=== PATIENT | female | born 1940 | race Caucasian/White ===

== ENCOUNTER 2024-05-18 11:15 | Inpatient (IN) | payer MEDICARE, OTHER, SELFPAY ==
--- NOTE | ~2024-05-18 | CT_ITS ---
EXAMINATION: CT ABDOMEN AND PELVIS WITHOUT CONTRAST CLINICAL INFORMATION: Fever. COMPARISON: None available. TECHNIQUE: Multidetector volumetric imaging was performed from the superior aspect of the liver through the pubic symphysis. Sagittal and coronal reformatted images were obtained on the technologist's workstation. This CT examination was performed using dose optimization techniques as appropriate, variously including the following: *Automated exposure control *Adjustment of mA and/or kV according to patient size (this includes techniques or standardized protocols for targeted exams where dose is matched to indication/reason for exam; i.e. extremities or head) *Use of iterative reconstruction technique DLP: 824 mGy-cm FINDINGS: LUNG BASES: There is apparent pericardial effusion most prominent on the left measuring up to 3.6 cm on the left. There is minimal atelectatic change at the left lung base. LIVER, GALLBLADDER, AND BILIARY TREE: The liver is normal in size, shape, and attenuation. No focal hepatic lesion or biliary ductal dilatation is present. There has been a prior cholecystectomy. PANCREAS: There are multiple cysts associated with the pancreas measuring up to 5.3 cm at the neck of the pancreas and 1.8 cm in the tail of the pancreas. SPLEEN: Unremarkable. ADRENAL GLANDS: Unremarkable. KIDNEYS AND URETERS: The kidneys are normal in size, shape, and attenuation. There are multiple bilateral renal cysts measuring up to 2.8 cm lower pole left kidney. BLADDER: Urinary bladder is decompressed. There is significant urinary bladder wall thickening with pericystic infiltration. GASTROINTESTINAL TRACT: There is diverticulosis of the descending and the sigmoid colon without diverticulitis. ABDOMINAL WALL: No significant hernia is appreciated. LYMPH NODES: Normal. VASCULAR: Unremarkable. PELVIC VISCERA: There is a multicystic lobular structure within the right adnexa measuring 5.5 cm. Multiple uterine fibroids are noted some of which are calcified.. OSSEOUS STRUCTURES: There is diffuse thoracolumbar degenerative change. CT/CT abdomen pelvis wo IV con IMPRESSION: 1. Pericardial effusion. 2. Multiple cysts associated with the pancreas measuring up to 5.3 cm. 3. Multicystic structure within the right adnexa measuring 5.5 cm. This is potentially neoplastic in a patient of this age. 4. Diverticulosis without diverticulitis of the descending and sigmoid colon. 5. Multiple uterine fibroids some of which are calcified. 6. Diffuse left urinary bladder wall thickening with pericystic infiltration consistent with cystitis. Correlation with urinalysis needed. Fleischner guidelines were followed.
--- NOTE | ~2024-05-18 | XR_ITS ---
EXAMINATION: XR CHEST CLINICAL INFORMATION: Weakness COMPARISON: None available. TECHNIQUE: Frontal view of the chest was obtained. FINDINGS: The cardiac silhouette is enlarged. Hilar and mediastinal contours are unremarkable. cosmetics presser projects over the left lower chest, question representing loop recorder. Lungs are clear. No pleural effusion or pneumothorax. There are degenerative changes of the spine and mild curvature of the midthoracic spine to the right. XR/XR chest 1V IMPRESSION: Enlarged cardiac silhouette.
--- NOTE | ~2024-05-18 | CT_ITS ---
EXAMINATION: CT HEAD WITHOUT CONTRAST CLINICAL INFORMATION: 83-year-old female with altered mental status COMPARISON: 05/22/2024 TECHNIQUE: Contiguous axial imaging was performed from the skull base to vertex without intravenous administration of contrast. This CT examination was performed using dose optimization techniques as appropriate, variously including the following: *Automated exposure control *Adjustment of mA and/or kV according to patient size (this includes techniques or standardized protocols for targeted exams where dose is matched to indication/reason for exam; i.e. extremities or head) *Use of iterative reconstruction technique DLP: 7 7 the mGy-cm FINDINGS: Examination limited due to motion. There is no evidence of acute intracranial hemorrhage masses, mass effect, but there is questionable high attenuation lesion adjacent to the medial aspect of right frontal cortex seen on image 25 series 2 and measured 0.2 cm. The ventricles, sulci, cisterns are prominent due to global volume loss and there are patchy periventricular white matter changes as a sequela of microangiopathy Paranasal sinuses are well aerated and there is no fractures. CT/CT head/brain wo IV con IMPRESSION: 1. Limited study due to motion. 2. Questionable high attenuation small lesion adjacent to the medial aspect of right frontal cortex. MRI is recommended for further evaluation. 3. Sequela of microangiopathy and global volume loss.
--- NOTE | ~2024-05-18 | MR_ITS ---
EXAMINATION: MR BRAIN WITHOUT AND WITH CONTRAST CLINICAL INFORMATION: Seizures. Question viral encephalitis. Question metastatic disease. COMPARISON: CT angiogram 05/19/2024. TECHNIQUE: Multiplanar MR imaging of the brain was performed without and with contrast. A total of 7.5 mL Gadavist was utilized for this examination. FINDINGS: Patient motion degrades image quality therefore the diagnostic accuracy of this examination is limited. On a dedicated coronal imaging, the hippocampi appear relatively small and there is corresponding enlargement of the temporal horns. Equivocal asymmetric T2 signal hyperintensity within the right hippocampus. Postcontrast images reveal no abnormal intracranial mass or enhancement. There is no intracranial mass effect or midline shift. No abnormal extra-axial collection. There is loss of parenchymal volume within the vacuo enlargement of the ventricular volumes. There is relative effacement of the sulcal spaces near the vertex and borderline narrowing of the callosal angle which may represent a manifestation of normal pressure hydrocephalus. There is a small focus of cortical encephalomalacia involving the left middle frontal gyrus near the vertex. There are numerous foci of T2 FLAIR signal hyperintensity within the periventricular white matter and hank that most likely represent a chronic manifestation of small vessel ischemia. There is also a nonspecific T2 FLAIR signal hyperintensity within the cerebellar hemispheres. No acute territorial infarct. No pathological magnetic susceptibility artifact. Intracranial vascular flow voids are grossly maintained. There is a small left mastoid tip effusion. Mild paranasal sinus disease primarily affecting the ethmoid air cells. Globes and orbits are symmetric. MR/MR head/brain wo/w con IMPRESSION: Patient motion degrades image quality therefore the diagnostic accuracy of this examination is limited. The hippocampi appear relatively small and there is equivocal hyperintensity within the right hippocampus which could represent a manifestation of underlying hippocampal sclerosis. Although not well assessed on this examination, a few of the vascular flow voids are absent within the cortical veins over the left convexity near the vertex. Correlation with the recent CT angiogram reveals absence of contrast filling within a few cortical veins. These findings may therefore represent vasculitis or perhaps cortical venous thrombosis. There is a small focal cortical lesion involving the left middle frontal gyrus near the vertex that may represent a small venous infarct. Alternately this finding may represent cystic encephalomalacia from an old vascular insult. Continued follow-up is however is recommended to ensure stability or resolution. There are are numerous chronic small vessel ischemic changes primarily involving the periventricular white matter and hank. There is relatively subtle ill-defined T2 signal hyperintensity within the cerebellum, the etiology of which is uncertain. Encephalitis is not excluded. Continued follow-up is recommended to assess the stability of this finding.
--- NOTE | ~2024-05-18 | CT_ITS ---
EXAMINATION: CT angio head neck stroke CLINICAL INFORMATION: Acute mental status change, eyes deviated to left COMPARISON: CT head 05/19/2024 TECHNIQUE: Test bolus sequences followed by intravenous administration 100 mL of Omnipaque 350. Helical imaging was performed in the axial plane from the mediastinum to the skull vertex. Delayed postcontrast imaging of the head was also performed. The data was processed at the automation technologist's workstation for generation of MIP sequences. Three-dimensional volume rendered reformatted images were also generated at an offline 3-D workstation. Arterial stenoses are measured in accordance with NASCET criteria or similar method if applicable. This CT examination was performed using dose optimization techniques as appropriate, variously including the following: * Automated exposure control * Adjustment of mA and/or kV according to patient size (this includes techniques or standardized protocols for targeted exams where dose is matched to indication/reason for exam; i.e. extremities or head) Use of iterative reconstruction technique DLP: 1531 mGy-cm. FINDINGS: CT head: There is no evidence of acute intracranial hemorrhage or territorial infarction. There is no loss of patel to white matter differentiation. No abnormal mass effect or midline shift is seen. No extra-axial fluid collections are identified. There is no abnormal enhancement. No hydrocephalus. Proportional prominence of the ventricles and sulcal spaces is consistent with moderate volume loss. Patchy periventricular and deep white matter hypoattenuation is consistent with moderate small vessel ischemic changes. The cerebellar tonsils are well positioned. No acute osseous or soft tissue abnormality. The mastoid air cells and visualized portions of the paranasal sinuses are well aerated. CTA neck: 2 vessel aortic arch with common origin of the brachiocephalic and left common carotid arteries. The origins of the great vessels are normal. The common carotid arteries are widely patent. The carotid bifurcations are normal. The cervical internal carotid arteries are normal. The vertebral arteries opacify normally and are of normal caliber. Nonvascular: Numerous peripherally enhancing centrally hypodense collections throughout the right greater than left thyroid measuring up to 2.2 cm. No cervical lymphadenopathy. Mild dependent subsegmental atelectasis bilaterally in the visualized lung apices. Mild multilevel cervical spondylosis. CTA head: Cavernous ICAs: Scattered atherosclerotic calcifications without significant stenosis on either side. A1 segments, anterior communicating artery, and A2 segments: Patent without significant stenosis. M1 segments and major MCA branches: Bilateral M1 segments are patent without significant stenosis. P1, P2 and proximal P3 segments of the audit manager: Patent without significant stenosis. Intracranial vertebral arteries, cerebellar arteries and basilar artery: Patent without significant stenosis. CT/CT angio head neck stroke IMPRESSION: HEAD CT: 1. No acute intracranial hemorrhage or edematous infarction. 2. Chronic changes including moderate ischemic microangiopathy and generalized volume loss. CTA HEAD/NECK: No high-grade stenosis or proximal occlusion of the vasculature of the head and neck. NONVASCULAR: Numerous peripherally enhancing collections throughout the right greater than left thyroid concerning for multifocal abscess versus necrosis/malignancy. Dedicated thyroid ultrasound is recommended.
--- NOTE | ~2024-05-18 | CT_ITS ---
EXAMINATION: CT HEAD WITHOUT CONTRAST CLINICAL INFORMATION: Altered mental status COMPARISON: CT head from 05/19/2024 TECHNIQUE: Contiguous axial imaging was performed from the skull base to vertex without intravenous administration of contrast. This CT examination was performed using dose optimization techniques as appropriate, variously including the following: *Automated exposure control *Adjustment of mA and/or kV according to patient size (this includes techniques or standardized protocols for targeted exams where dose is matched to indication/reason for exam; i.e. extremities or head) *Use of iterative reconstruction technique DLP: 1227 mGy-cm FINDINGS: Patient motion artifact limits evaluation. Chronic white matter small vessel ischemic changes. Cerebral atrophy with commensurate ventricular changes. There is no evidence of acute intracranial hemorrhage or territorial infarction. No abnormal mass effect or midline shift is seen. [place] to white matter differentiation is well preserved. No extra-axial fluid collections are identified. The ventricles are normal in size. There is no abnormal attenuation within the brain parenchyma. The osseous structures and soft tissues are normal. The mastoid air cells and visualized portions of the paranasal sinuses are well aerated. Atherosclerotic calcifications. CT/CT head/brain wo IV con IMPRESSION: 1. Patient motion artifact limits evaluation. 2. No acute intracranial pathology. 3. Chronic white matter small vessel ischemic changes.
--- NOTE | ~2024-05-18 | CT_ITS ---
EXAMINATION: CT HEAD WITHOUT CONTRAST CLINICAL INFORMATION: Mental status change COMPARISON: None available. TECHNIQUE: Contiguous axial imaging was performed from the skull base to vertex without intravenous administration of contrast. This CT examination was performed using dose optimization techniques as appropriate, variously including the following: *Automated exposure control *Adjustment of mA and/or kV according to patient size (this includes techniques or standardized protocols for targeted exams where dose is matched to indication/reason for exam; i.e. extremities or head) *Use of iterative reconstruction technique DLP: 726 mGy-cm FINDINGS: There is no evidence of an extra-axial collection. There is no evidence of intra or extra-axial hemorrhage. The ventricles and extra-axial CSF spaces are prominent suggestive of generalized atrophy. There is mild nonspecific periventricular white matter disease. No mass, mass effect or infarct. Degenerative changes at the temporomandibular joints. No skull fracture. Visualized sinuses mastoid air cells and middle ears are clear. CT/CT head/brain wo IV con IMPRESSION: No acute findings.
--- NOTE | ~2024-05-18 | CT_ITS ---
EXAMINATION: CT head for stroke CLINICAL INFORMATION: Acute mental status change, eyes deviated to left COMPARISON: CT head 05/18/2024 TECHNIQUE: Contiguous axial imaging was performed from the skull base to vertex without intravenous contrast. This CT examination was performed using dose optimization techniques as appropriate, variously including the following: * Automated exposure control * Adjustment of mA and/or kV according to patient size (this includes techniques or standardized protocols for targeted exams where dose is matched to indication/reason for exam; i.e. extremities or head) * Use of iterative reconstruction technique DLP: 720 mGy-cm. FINDINGS: There is no evidence of acute intracranial hemorrhage or territorial infarction. [place] to white matter differentiation is well preserved. No abnormal mass effect or midline shift is seen. No extra-axial fluid collections are identified. No hydrocephalus. Proportional prominence of the ventricles and sulcal spaces is consistent with moderate volume loss. Patchy periventricular and deep white matter hypoattenuation is consistent with moderate small vessel ischemic changes. The cerebellar tonsils are well positioned. No acute osseous or soft tissue abnormality. Bilateral lens extraction. The mastoid air cells and visualized portions of the paranasal sinuses are well aerated. Small volume cerumen in the right external auditory canal. CT/CT head for stroke IMPRESSION: 1. No acute intracranial pathology. 2. 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 These results were discussed with Yung Pillai MD by telephone on 05/19/2024 at 11:26 PM and it was ascertained that the content of the report was understood at the time of direct communication.
--- NOTE | ~2024-05-18 | XR_ITS ---
EXAMINATION: XR CHEST CLINICAL INFORMATION: Fever. COMPARISON: 05/18/2024 TECHNIQUE: Frontal view of the chest was obtained. FINDINGS: The cardiomediastinal silhouette is stable. There is no focal lung consolidation or pleural effusions. The bony structures and soft tissues are unremarkable. XR/XR chest 1V IMPRESSION: No acute cardiopulmonary process.
[2024-05-18 11:30] VITALS: BP 137/83; PULSE 62; O2SAT 98
[2024-05-18 11:45] VITALS: BP 126/53; PULSE 64; RESP 16; TEMP 36.8; O2SAT 98; BMI 25.5
--- NOTE | 2024-05-18 11:57 | ECG_ITS ---
Test Reason : AMS Blood Pressure : / mmHG Vent. Rate : 065 BPM Atrial Rate : 065 BPM P-R Int : 156 ms QRS Dur : 088 ms QT Int : 376 ms P-R-T Axes : 033 033 047 degrees QTc Int : 391 ms Normal sinus rhythm Anterior infarct , age undetermined Abnormal ECG No previous ECGs available Referred By: Arianne Em Electronically Signed By:Yrn Do
--- NOTE | 2024-05-18 12:00 | ED.WEAKNESS ---
HPI - Weakness General Chief complaint: Altered Mental Status Stated complaint: Hx of uti, experiencing decreased urine Time Seen by Provider: 05/18/24 11:27 Source: patient, EMS and old records reviewed Mode of arrival: EMS Limitations: altered mental status History of Present Illness ED Provider: ANGELICA HPI Narrative: 83 yo female with PMH of DM2, CKD stage 3, HTN, hypothyroidism, TIA here with very convoluted story of possible UTI vs not and then also found down on ground at assisted living. The patient has no complaints doesn't know why she is here is in no pain and is confused. I see no history of cognitive impairment on her sheet. 05/12 patient seen for falls and weakness at [facility] negative work up and patinet noted to have advanced dementia then MD Complaint: generalized weakness (confusion) Onset (ago): unknown Duration: constant Location: generalized Migration: none Severity: moderate Relieving factors: none Exacerbating factors: none Context: other (reportedly was on abilify which may have caused this per EMS but she is not on it anymore) Associated symptoms: denies other symptoms Related Data Home Medications ?Medication ?Instructions ?Recorded ?Confirmed amlodipine 10 mg tablet 10 mg PO DAILY 06/07/22 atorvastatin 40 mg tablet 40 mg PO DAILY PRN 06/07/22 empagliflozin 25 mg tablet 25 mg PO DAILY 06/07/22 (Jardiance) glipizide 5 mg tablet 5 mg PO DAILY 06/07/22 labetalol 200 mg tablet 200 mg PO BID 06/07/22 levothyroxine 112 mcg tablet 112 mcg PO DAILY 06/07/22 losartan 50 mg tablet 50 mg PO DAILY 06/07/22 sertraline 50 mg tablet 50 mg PO DAILY 06/07/22 Allergies Allergy/AdvReac Type Severity Reaction Status Date / Time iodine Allergy Mild unknown Verified 05/18/24 11:50 Review of Systems Review of Systems: ROS unable to be obtained due to altered mental status but also grossly negative [facility] Past Medical History Attestation statement: The following information was validated with the patient. Source: old records reviewed Medical History Hypothyroidism HTN (hypertension) Diabetes Social History Social History (Updated 05/18/24 @ 12:24 by Arianne Em DO) Patient Tobacco Use Status: Never used Tobacco Advance Directives: No Advance Directives Information Provided: Yes Physical Exam Vital Signs: Vital Signs: Last Vital Signs Temp 98.2 F 05/18/24 14:01 Pulse 66 05/18/24 14:01 Resp 16 05/18/24 14:01 BP 159/66 H 05/18/24 14:01 Pulse Ox 96 05/18/24 14:01 O2 Del Method Room Air 05/18/24 14:01 BMI result Body Mass Index 25.5 Appearance: Alert. Oriented X to self. No acute distress. Eyes: Pupils equal, round and reactive to light. ENT: Pharynx normal. atraumatic Neck: Normal inspection. Neck supple. CVS: Normal heart rate and rhythm. Pulses normal. Respiratory: No respiratory distress. Breath sounds normal. Abdomen: Soft and nontender. Skin: Skin warm and dry. Normal skin color. Normal skin turgor. Extremities: No lower extremity edema. No calf ttp Neuro: Oriented X 1. No motor deficit. No sensory deficit. Medical Decision Making Medical Decision Making [facility] Narrative: 83 yo female with PMH of DM2, CKD stage 3, HTN, hypothyroidism, TIA here with c/o confusion weakness possible recent UTI and found on ground she has no signs of trauma she will need basic labs, UA, EKG, CT head. I am asking CM to get involved for full backstory as well as she cannot provide it and her it hospitalized somehwere. Differential Diagnosis Differential Diagnoses: The differential diagnosis associated with the presentation includes dementia, toxic/metabolic encephalopathy stroke Admission/Observation Consideration of admission/observation: Escalation of care including admission/observation considered physician observation started until seen by PT/CM and psychiatry [employer] Consult Healthcare Provider Management of the patient was discussed with: Behavioral Health Provider Lab Data [facility] Lab Attestation statement: I reviewed the patient's lab results. 05/18/24 12:14 05/18/24 12:14 Labs: Lab Results 05/18/24 05/18/24 05/18/24 Range/Units 12:12 12:14 12:15 WBC 5.7 (4.8-10.8) X10*3/uL RBC 4.24 (4.20-5.50) X10*6/uL Hgb 13.0 (12.0-16.0) g/dl Hct 38.6 (37.0-47.0) % MCV 91.0 (80.0-98.0) fL MCH 30.7 (27.0-33.0) pg MCHC 33.7 (31.0-35.0) g/dl RDW 13.2 (11.0-16.0) % Plt Count 215 (160-400) X10*3/uL MPV 10.5 (9.4-12.3) fL Immature Gran % (Auto) 0.4 (0.0-0.4) % Neut % (Auto) 73.3 H (45-73) % Lymph % (Auto) 15.3 L (20-40) % Tift % (Auto) 6.0 (2-11) % Eos % (Auto) 3.9 (0-4) % Baso % (Auto) 1.1 (0-2) % Lymph # (Auto) 0.9 L (1.2-4.9) X10*3/uL Tift # (Auto) 0.3 (0.1-1.2) X10*3/uL Eos # (Auto) 0.2 (0.0-0.4) X10*3/uL Baso # (Auto) 0.1 (0.0-0.2) X10*3/uL Abs Immat Gran (auto) 0.02 (0.00-0.03) X10*3/uL Absolute Neuts (auto) 4.2 (2.0-8.3) x10*3/uL Absolute Nucleated RBC 0.000 (0.0-0.012) X10*3/uL Nucleated RBC % (auto) 0.0 (0.0-0.2) /100WBC PT 11.4 (11.1-13.3) SEC INR 0.9 (0.9-1.1) VBG pH (7.32-7.43) VBG pCO2 mmHg VBG pO2 mmHg VBG HCO3 (22-26) mmol/L VBG O2 Saturation % VBG Base Excess mmol/L Sodium 147 H (135-145) mmol/L Potassium 3.8 (3.3-5.1) mmol/L Chloride 114 H (96-108) mmol/L Carbon Dioxide 28 (22-29) mmol/L Anion Gap 9 L (12-20) BUN 28 H (9-16) mg/dL Creatinine 1.12 (0.5-1.4) mg/dL Estim Creat Clear Calc 37.9 Estimated GFR 46 Random Glucose 110 (60-115) mg/dL Calcium 10.6 H (8.4-10.2) mg/dL Magnesium 2.1 (1.6-2.6) mg/dL Total Bilirubin 0.6 (0.0-1.0) mg/dL Direct Bilirubin 0.2 (0.0-0.5) mg/dL AST 18 (5-31) U/L ALT 14 (0-31) U/L Alkaline Phosphatase 54 (39-117) U/L Ammonia 25 (13-55) umol/L Total Creatine Kinase 34 (26-140) U/L Troponin I High Sens 4.1 (<3.5-17.0) ng/L Total Protein 6.3 L (6.5-8.0) g/dL Albumin 3.8 (3.5-5.0) g/dL Lipase 28 (8-78) U/L TSH 1.24 (0.32-4.0) uIU/mL Urine Color Urine Appearance Urine pH (5.0-9.0) Ur Specific [place] (1.005-1.025) Urine Protein (Neg-Trace) mg/dL Urine Glucose (UA) (Negative) mg/dL Urine Ketones (Negative) mg/dL Urine Blood (Negative) Urine Nitrite (Negative) Ur Leukocyte Esterase (Negative) Urine RBC (0-2) /HPF Urine WBC (0-5) /HPF Ur Squamous Epith Cells (0-2) /HPF Urine Bacteria (None Seen) Hyaline Casts (0-2) /LPF Salicylates < 5.0 L (15-30) mg/dL Acetaminophen < 3 (<30) mcg/mL Influenza Type A (PCR) NEGATIVE (Negative) Influenza Type B (PCR) NEGATIVE (Negative) RSV RNA Qual (PCR) NEGATIVE (Negative) SARS-CoV-2 RNA (RT-PCR) NEGATIVE (Negative) 05/18/24 05/18/24 Range/Units 12:19 12:27 WBC (4.8-10.8) X10*3/uL RBC (4.20-5.50) X10*6/uL Hgb (12.0-16.0) g/dl Hct (37.0-47.0) % MCV (80.0-98.0) fL MCH (27.0-33.0) pg MCHC (31.0-35.0) g/dl RDW (11.0-16.0) % Plt Count (160-400) X10*3/uL MPV (9.4-12.3) fL Immature Gran % (Auto) (0.0-0.4) % Neut % (Auto) (45-73) % Lymph % (Auto) (20-40) % Tift % (Auto) (2-11) % Eos % (Auto) (0-4) % Baso % (Auto) (0-2) % Lymph # (Auto) (1.2-4.9) X10*3/uL Tift # (Auto) (0.1-1.2) X10*3/uL Eos # (Auto) (0.0-0.4) X10*3/uL Baso # (Auto) (0.0-0.2) X10*3/uL Abs Immat Gran (auto) (0.00-0.03) X10*3/uL Absolute Neuts (auto) (2.0-8.3) x10*3/uL Absolute Nucleated RBC (0.0-0.012) X10*3/uL Nucleated RBC % (auto) (0.0-0.2) /100WBC PT (11.1-13.3) SEC INR (0.9-1.1) VBG pH 7.39 (7.32-7.43) VBG pCO2 47 mmHg VBG pO2 41 mmHg VBG HCO3 29 H (22-26) mmol/L VBG O2 Saturation 69.0 % VBG Base Excess 3.6 mmol/L Sodium (135-145) mmol/L Potassium (3.3-5.1) mmol/L Chloride (96-108) mmol/L Carbon Dioxide (22-29) mmol/L Anion Gap (12-20) BUN (9-16) mg/dL Creatinine (0.5-1.4) mg/dL Estim Creat Clear Calc Estimated GFR Random Glucose (60-115) mg/dL Calcium (8.4-10.2) mg/dL Magnesium (1.6-2.6) mg/dL Total Bilirubin (0.0-1.0) mg/dL Direct Bilirubin (0.0-0.5) mg/dL AST (5-31) U/L ALT (0-31) U/L Alkaline Phosphatase (39-117) U/L Ammonia (13-55) umol/L Total Creatine Kinase (26-140) U/L Troponin I High Sens (<3.5-17.0) ng/L Total Protein (6.5-8.0) g/dL Albumin (3.5-5.0) g/dL Lipase (8-78) U/L TSH (0.32-4.0) uIU/mL Urine Color Yellow Urine Appearance Clear Urine pH 5.5 (5.0-9.0) Ur Specific [place] 1.015 (1.005-1.025) Urine Protein Negative (Neg-Trace) mg/dL Urine Glucose (UA) >=1000 H (Negative) mg/dL Urine Ketones Negative (Negative) mg/dL Urine Blood Negative (Negative) Urine Nitrite Negative (Negative) Ur Leukocyte Esterase Negative (Negative) Urine RBC 0-2 (0-2) /HPF Urine WBC 0-5 (0-5) /HPF Ur Squamous Epith Cells 0-2 (0-2) /HPF Urine Bacteria 1+ (None Seen) Hyaline Casts 0-2 (0-2) /LPF Salicylates (15-30) mg/dL Acetaminophen (<30) mcg/mL Influenza Type A (PCR) (Negative) Influenza Type B (PCR) (Negative) RSV RNA Qual (PCR) (Negative) SARS-CoV-2 RNA (RT-PCR) (Negative) Independent Interpretation I performed an independent interpretation of an: EKG, Plain X-Ray (no pneumonia) and CT Scan (no stroke) Interpretation: Rate: 65 Rhythm: NSR [place]: normal Normal P waves. Normal SHARDA. Normal QRS complex. ST T wave : KIKO V2 no reciprocal changes and poor R wave progression noted qTC: 391 prior studies: no acute ischemia The study has been interpreted contemporaneously by me. . Radiology Impression Discussion of test interpretation with radiology: I have reviewed the radiologist's reading. Independent Historian Clinical information obtained from an independent historian. History obtained from or confirmed by: EMS and Other (daughter) External Record Review External record reviewed: Outpatient record Discharge Plan Discharge Clinical Impression: Acute dehydration, Weakness Patient Disposition: Still a Patient Prescriptions: No Action Jardiance 25 mg tablet 25 mg PO DAILY levothyroxine 112 mcg tablet 112 mcg PO DAILY glipizide 5 mg tablet 5 mg PO DAILY sertraline 50 mg tablet 50 mg PO DAILY amlodipine 10 mg tablet 10 mg PO DAILY labetalol 200 mg tablet 200 mg PO BID atorvastatin 40 mg tablet 40 mg PO DAILY PRN losartan 50 mg tablet 50 mg PO DAILY Print Language: Persian
[2024-05-18 12:20] LABS: MANUAL DIFF FLAG NO
[2024-05-18 12:23] LABS: Basophils Absolute Auto 0.1 X10*3/uL (0.0-0.2); Basophils Percent Auto 1.1 % (0-2); Eosinophils Absolute Auto 0.2 X10*3/uL (0.0-0.4); Eosinophils Percent Auto 3.9 % (0-4); Hematocrit 38.6 % (37.0-47.0); Imm Gran Abs Auto 0.02 X10*3/uL (0.00-0.03); Imm Gran Pct Auto 0.4 % (0.0-0.4); Lymphocytes Absolute Auto 0.9 X10*3/uL (1.2-4.9); Lymphocytes Percent Auto 15.3 % (20-40); Mean Corpuscular HGB Conc 33.7 g/dl (31.0-35.0); Mean Corpuscular Hemoglobin 30.7 pg (27.0-33.0); Mean Platelet Volume 10.5 fL (9.4-12.3); Monocytes Absolute Auto 0.3 X10*3/uL (0.1-1.2); Neutrophils Absolute Auto 4.2 x10*3/uL (2.0-8.3); Neutrophils Percent Auto 73.3 % (45-73); Platelet Count 215 X10*3/uL (160-400); Red Blood Count 4.24 X10*6/uL (4.20-5.50); Red Cell Distribution Width 13.2 % (11.0-16.0); White Blood Count 5.7 X10*3/uL (4.8-10.8)
[2024-05-18 12:26] LABS: VBG Base Excess 3.6 mmol/L; VBG HCO3 29 mmol/L (22-26); VBG pCO2 47 mmHg; VBG pH 7.39 (7.32-7.43); VBG pO2 41 mmHg
[2024-05-18 12:29] LABS: Ammonia 25 umol/L (13-55)
--- NOTE | 2024-05-18 12:32 | PC.NURSE ---
Pt straight catheterized for urine sample, tolerated well. Sent to lab.
[2024-05-18 12:36] LABS: Venous Blood Gas Refer to POC result
[2024-05-18 12:37] LABS: Appearance Urine Clear; Color Urine Yellow; Glucose Urine UA >=1000 mg/dL (Negative); Leukocyte Esterase Urine Negative (Negative); Nitrite Urine Negative (Negative); PH 5.5 (5.0-9.0); Specific Gravity - Urine 1.015 (1.005-1.025); UMIC TRIGGER UACC YES; Urine Blood Negative (Negative); Urine Ketones Negative (Negative); Urine Protein Negative (Neg-Trace)
[2024-05-18 12:38] LABS: INTERNATIONAL NORM RATIO 0.9 (0.9-1.1); Prothrombin Time 11.4 SEC (11.1-13.3)
[2024-05-18 12:39] LABS: Alanine Aminotransferase 14 U/L (0-31); Albumin Level 3.8 g/dL (3.5-5.0); Alkaline Phosphatase 54 U/L (39-117); Anion Gap 9 (12-20); Aspartate Amino Transferase 18 U/L (5-31); Bilirubin Direct 0.2 mg/dL (0.0-0.5); Bilirubin Total 0.6 mg/dL (0.0-1.0); Blood Urea Nitrogen 28 mg/dL (9-16); Calcium 10.6 mg/dL (8.4-10.2); Carbon Dioxide 28 mmol/L (22-29); Chloride 114 mmol/L (96-108); Creatinine Clr Calc Pharmacy 37.9; Estimated Glomerular Filt Rate 46; Glucose Random 110 mg/dL (60-115); Lipase 28 U/L (8-78); Magnesium 2.1 mg/dL (1.6-2.6); Potassium 3.8 mmol/L (3.3-5.1); Sodium 147 mmol/L (135-145); Total Protein 6.3 g/dL (6.5-8.0)
[2024-05-18 12:46] LABS: Troponin-I High Sensitivity 4.1 ng/L (<3.5-17.0)
[2024-05-18 13:00] LABS: Acetaminophen LAB < 3 mcg/mL (<30); Salicylate < 5.0 mg/dL (15-30)
[2024-05-18 13:01] LABS: TSH reflex Free T4 1.24 uIU/mL (0.32-4.0)
[2024-05-18 13:04] LABS: Influenza A PCR NEGATIVE (Negative); Influenza B PCR NEGATIVE (Negative); Resp Syncy Virus RNA Qual PCR NEGATIVE (Negative); SARS COV2 PCR INHOUSE NEGATIVE (Negative)
--- NOTE | 2024-05-18 13:10 | PC.NURSE ---
Xray at bedside.
[2024-05-18 13:19] LABS: Bacteria Urine 1+ (None Seen); Hyaline Casts Urine 0-2 /LPF (0-2); RBC Urine 0-2 /HPF (0-2); Squamous Epithelial Cell Urine 0-2 /HPF (0-2); WBC Urine 0-5 /HPF (0-5)
[2024-05-18 14:01] VITALS: BP 159/66; PULSE 66; RESP 16; TEMP 36.8; O2SAT 96
--- NOTE | 2024-05-18 14:09 | MHC.CM.ED ---
Patient was brought to ER due to AMS and weaknees. Patient is from [facility]. No information gave with patient. T/W attempted to reaching nursing staff at [facility] via telephone at [phone]. Left voicemail requesting return telephone call. Patient's daughter/HCP, Denisha, currently bedside. Both patient and patient's have dementia issues. Patient's is currently in Memory Care at [facility]. Patient is in independent living at [facility]. Denisha has it arranged that both the patient and her into [facility] in [place] next week. If patient needs STR, Denisha understands it will be privately paid. Denisha requesting referral to [facility]. Referral made in [facility]. Work up is pending. Continue to monitor for d/c needs.
--- NOTE | 2024-05-18 14:50 | MHC.EDTECH ---
Called [facility] and spoke to Mis @12:12 for d/c paperwork requested by Dr. Em
--- NOTE | 2024-05-18 15:21 | PC.NURSE ---
Pt paranoid, refusing IV fluids. you have the wrong person, it's not me. I've been waiting for my ride home.
--- NOTE | 2024-05-18 15:51 | PC.NURSE ---
pt refusing IV access at this time, pt requests to speak w/ MD- per MD no need for access at this time
--- NOTE | 2024-05-18 17:35 | MHC.CM.ED ---
Addendum entered by Alice Guzman 05/18/24 17:36: Pt is awaiting psych consult for medication management. Original Note: Pt unable to participate in PT, as patient is paranoid and confused. PT will try again tomorrow.
[2024-05-18 18:06] VITALS: RESP 16
--- NOTE | 2024-05-18 18:29 | PC.NURSE ---
report given to Yamileth, in ED Overflow- pt to go to Overflow 3
--- NOTE | 2024-05-18 18:42 | PC.NURSE ---
spoke with pt dtr pt has arrangements to move it into [facility] in [place] for memory care- case management aware
[2024-05-18 19:55] VITALS: BP 174/69; PULSE 90; RESP 18; TEMP 36.7; O2SAT 94
[2024-05-18] MEDS: OLANZapine ODT 10 MG TAB.RAPDIS TRANSLINGU (20:39)
--- NOTE | 2024-05-19 12:30 | MHC.EDTECH ---
Patient confused, I needed to cut her food up and feed her. She was unable to operate the spoon correctly. Patient ate about 25% of her lunch. She drank 118ml of juice.
--- NOTE | 2024-05-19 12:59 | PHA.MEDREC ---
Pharmacy Consult ? Medication Reconciliation Pharmacy has completed the medication reconciliation. Spoke with [facility] director Diana, she confirmed that they take care of patients medications there. Spoke with nurse Ángela Barney to confirm her current medications. Ángela confirmed she takes Vitamin D3 on Sundays, her TDD for losartan and sertraline are both 75mg. She reported that the doctors notes does recommend to increase her sertraline to 100mg however patient has not started this dose according to her. Diana and Ángela both reported that her abilify did get discontinued last Tuesday.
--- NOTE | 2024-05-19 14:22 | MHC.CM.PN ---
PER NOTES, PT WAS UNABLE TO PARTICIPATE WITH P.T. AWAITING PSYCH CONSULT. CM FOLLOWING FOR PLAN
[2024-05-19 15:26] VITALS: BP 122/88; PULSE 76; RESP 18; TEMP 37.1; O2SAT 98
--- NOTE | 2024-05-19 15:46 | MHC.EDTECH ---
patient is a 1:1 feed, must feed slowly and small bites
--- NOTE | 2024-05-19 15:49 | MHC.EDTECH ---
patient repositioned from right side to left.
--- NOTE | 2024-05-19 19:50 | PC.NURSE ---
Assumed care of patient at 19:00. Patient continues in ED overflow. ED provider Shi Loredoexted that pharmacy has completed med rec, medication orders requested.
[2024-05-19 22:15] VITALS: BP 220/98; PULSE 111; RESP 28; TEMP 39.6; O2SAT 93
--- NOTE | 2024-05-19 22:48 | PC.NURSE ---
Assumed care of patient at 19:00. Patient seen in ED overflow as PT/CM patient. [facility]ed [facility] after found on the floor with unknown down time. ED provider initial findings consistent with dementia and noted imaging, U/A, CXR negative. On assuming care patient was resting in bed, arousable to light touch with no noted distress. On 22:00 hour scheduled vitals patient found to be febrile 103.2 rectally, hypertensive (manual BP 220-98/ cuff BP correlating 222/96), tachycardic HR 111, tachypneic RR 28, spo2 93% on RA. Pupils assessed equal round and reactive 3mm brisk. +blink to threat intact. Pt uncooperative with tongue visualization. +radial and dp pulses. Extremities warm throughout. Voiding good amounts of odorless cyu via purewick. ED horticulture/floriculture teacher Tiana and Provider Shi Yap notified of vitals. Handoff report given to ED RN and patient was transferred back to the ED by lost charge card clerk at 22:50.
--- NOTE | 2024-05-19 23:00 | ECG_ITS ---
Test Reason : ACUTE MENTAL CHANGE Blood Pressure : / mmHG Vent. Rate : 111 BPM Atrial Rate : 111 BPM P-R Int : 158 ms QRS Dur : 088 ms QT Int : 326 ms P-R-T Axes : 051 045 016 degrees QTc Int : 443 ms Sinus tachycardia Possible Anterior infarct (cited on or before 18-MAY-2024) Abnormal ECG When compared with ECG of 18-MAY-2024 12:00, Vent. rate has increased BY 46 BPM Referred By: Yung Pillai Electronically Signed By:GABRIELA KISER MD
[2024-05-19 23:07] LABS: Basophils Absolute Auto 0.1 X10*3/uL (0.0-0.2); Basophils Percent Auto 0.9 % (0-2); Eosinophils Percent Auto 0.1 % (0-4); Hematocrit 47.3 % (37.0-47.0); Hemoglobin 16.3 g/dl (12.0-16.0); Imm Gran Abs Auto 0.04 X10*3/uL (0.00-0.03); Imm Gran Pct Auto 0.4 % (0.0-0.4); Lymphocytes Absolute Auto 0.6 X10*3/uL (1.2-4.9); MANUAL DIFF FLAG SCAN; Mean Corpuscular HGB Conc 34.5 g/dl (31.0-35.0); Mean Corpuscular Hemoglobin 30.4 pg (27.0-33.0); Mean Corpuscular Volume 88.2 fL (80.0-98.0); Mean Platelet Volume 10.9 fL (9.4-12.3); Monocytes Absolute Auto 0.2 X10*3/uL (0.1-1.2); Monocytes Percent Auto 1.5 % (2-11); Neutrophils Absolute Auto 9.3 x10*3/uL (2.0-8.3); Neutrophils Percent Auto 91.1 % (45-73); Platelet Count 266 X10*3/uL (160-400); Red Blood Count 5.36 X10*6/uL (4.20-5.50); Red Cell Distribution Width 12.9 % (11.0-16.0); SCAN SMEAR FLAG 1; White Blood Count 10.2 X10*3/uL (4.8-10.8)
[2024-05-19 23:17] LABS: Lactic Acid 1.2 mmol/L (0.5-2.0)
[2024-05-19] MEDS: iohexoL 350 MG/ML 100 ML INFUS..BTL 70 ML IV (23:27)
[2024-05-19 23:28] LABS: Alanine Aminotransferase 18 U/L (0-31); Albumin Level 4.4 g/dL (3.5-5.0); Alkaline Phosphatase 71 U/L (39-117); Anion Gap 19 (12-20); Aspartate Amino Transferase 29 U/L (5-31); Bilirubin Direct 0.2 mg/dL (0.0-0.5); Bilirubin Total 0.7 mg/dL (0.0-1.0); Blood Urea Nitrogen 25 mg/dL (9-16); Calcium 10.9 mg/dL (8.4-10.2); Carbon Dioxide 21 mmol/L (22-29); Chloride 108 mmol/L (96-108); Estimated Glomerular Filt Rate 44; Glucose Random 205 mg/dL (60-115); Potassium 4.6 mmol/L (3.3-5.1); Sodium 143 mmol/L (135-145)
[2024-05-19 23:29] LABS: SLIDE REVIEW VERIFIED
[2024-05-19] MEDS: 0.9 % Sodium Chloride 1,000 ML 999 ML IV (23:30)
[2024-05-19] MEDS: cefTRIAXone sodium 1 GM in 0.9 % Sodium Chloride 50 ML IV (23:31)
[2024-05-19] MEDS: Acetaminophen Supp 650 MG SUPP.RECT PR (23:32)
[2024-05-19 23:38] LABS: Influenza A PCR NEGATIVE (Negative); Influenza B PCR NEGATIVE (Negative); Resp Syncy Virus RNA Qual PCR NEGATIVE (Negative); SARS COV2 PCR INHOUSE NEGATIVE (Negative)
--- NOTE | 2024-05-19 23:57 | PC.NURSE ---
This RN assumed pt care @ 2300. Pt comes from overflow lethargic responding to minimal verbal stimuli. EKG complete CT complete IV line placed, labs drawn and sent Temp sensing murrieta placed, UA sent. Pt medicated per jan. Pt placed on bedside monitor. Loraine care, gown, and bedding change complete. Providers Yung and Shi @ bedside. Plan of care ongoing.
[2024-05-20] VITALS (13 sets, daily range): BP systolic 109–182; BP diastolic 41–72; PULSE 70–120; RESP 17–56; TEMP 36.3–39.2; O2SAT 93–98; BMI 26.5
--- NOTE | 2024-05-20 00:03 | PC.NURSE ---
Xray with pt
[2024-05-20 00:07] LABS: Appearance Urine Clear; Color Urine Yellow; Glucose Urine UA >=1000 mg/dL (Negative); Leukocyte Esterase Urine Negative (Negative); Nitrite Urine Negative (Negative); Specific Gravity - Urine >= 1.030 (1.005-1.025); UMIC TRIGGER UACC YES; Urine Blood Small (1+) (Negative); Urine Ketones 40 mg/dL (Negative); Urine Protein 300 (3+) mg/dL (Neg-Trace)
[2024-05-20 00:40] LABS: C Reactive Protein 0.12 mg/dL (< or = 0.50)
[2024-05-20] MEDS: cefTRIAXone sodium 1 GM in 0.9 % Sodium Chloride 50 ML IV (00:43)
[2024-05-20] MEDS: LORazepam 2 MG/ML VIAL IVPUSH (00:43)
[2024-05-20 00:44] LABS: Bacteria Urine 1+ (None Seen); Hyaline Casts Urine 0-2 /LPF (0-2); RBC Urine 0-2 /HPF (0-2); WBC Urine 0-5 /HPF (0-5)
--- NOTE | 2024-05-20 00:48 | PC.NURSE ---
Pt medicated per jan. Daughter at bedside. Plan of care ongoing.
[2024-05-20] MEDS: 0.9 % Sodium Chloride 1,000 ML 999 ML IV (01:03)
[2024-05-20] MEDS: levETIRAcetam in NaCl (iso-os) 1,000 MG/100 ML PIGGYBACK 400 MG IV (01:29)
--- NOTE | 2024-05-20 01:32 | PC.NURSE ---
Pt medicated per mar. Plan of care ongoing
--- NOTE | 2024-05-20 03:09 | P.HPHOSP_ITS ---
History of Present Illness Date of Service: 05/20/24 Attending physician on admission: Amrik Mohan Chief Complaint: Fever, seizure-like activity Hazel Restrepo is 83 y/o woman with past medical history significant for dementia, type 2 diabetes mellitus on oral hypoglycemic agents, hypothyroidism, essential hypertension, depression and hyperlipidemia was brought to the emergency department 2 days ago (Tuesday) via ambulance from her assisted living facility [facility] after she was found on the floor. HPI was provided by patient's daughter who was at bedside. Daughter stated that the patient has had 2 falls before and has been in the emergency department twice for this. She was seen at [facility] due to inability to ambulate on weakness but workup has been negative. It seems like the patient was treated for a UTI over the past month. According to ED provider the patient has been in the emergency department since Tuesday awaiting for placement by case management. Today in the observation unit the patient was having acute changes in mental status and was found to have a temperature 103.2 degrees. She was also to have significant hypertension. Not if the patient was having a stroke or seizure or last time known well time as she received olanzapine for agitation at some point. Patient was given Ativan IV. Neurologist on-call has been contacted waiting for call back. Her blood workup showed no leukocytosis and lactic acid is normal. Blood cultures were obtained. There are no significant electrolyte imbalances. BUN is 25 and creatinine 1.18. Hemoglobin is slightly elevated. Differential showed neutrophilia, low lymphocytes and low monocytes. INR is normal. Venous blood gas 2 days ago was found to be unremarkable. Urinalysis showed no evidence of urinary tract infection, it did showed elevated specific gravity, proteinuria and glucosuria. Toxicology for salicylates and acetaminophen are unremarkable. Viral testing for COVID 19, influenza and RSV is negative. CXR showed no infiltrates or consolidation. Head CT scan showed no acute intracranial abnormality. Head and neck CTA showed no high-grade stenosis or proximal occlusion of the vasculature of the head and neck. ED tx: Acetaminophen 975 mg PO, NS 2 L bolus (total), ceftriaxone 2 g IV (total), Tylenol 650 mg [place], Ativan 2 g IV, NS 1 L bolus, Keppra 1 g IV Review of Systems 2 Review of Systems: Yes Unobtainable due to mental status PMFSH Medical History Hypothyroidism HTN (hypertension) Diabetes Social History (Updated 05/18/24 @ 12:24 by Arianne Em DO) Patient Tobacco Use Status: Never used Tobacco Advance Directives: No Advance Directives Information Provided: Yes Meds Allergies Allergy/AdvReac Type Severity Reaction Status Date / Time iodine Allergy Mild unknown Verified 05/18/24 11:50 Active Medications: Current Medications Calcium Carbonate (Calcium Carbonate 750 Mg Tab.Chew) 750 mg PO Q4H PRN PRN Reason: Heartburn Dexamethasone Sodium Phosphate (Dexamethasone Sod Phosphate 10 Mg/Ml Vial) 10 mg IVPUSH Q6H GINNY Lactated Ringer's (Lr) 1,000 mls @ 100 mls/hr IVCONT .Q10H GINNY Ampicillin Sodium 2 gm/ Sodium (Chloride) 100 mls @ 200 mls/hr IV Q4H GINNY Ceftriaxone Sodium 2 gm/ (Sodium Chloride) 50 mls @ 100 mls/hr IV Q12H GINNY Magnesium Hydroxide (Milk Of Magnesia 30 Ml Oral.Susp) 30 ml PO DAILY PRN PRN Reason: Constipation Melatonin (Melatonin 3 Mg Tablet) 6 mg PO BEDTIME PRN PRN Reason: Insomnia Pharmacy Consult (Consult Rx Vancomycin Dosing) 1 each MISCELLANE DAILY PRN PRN Reason: Consult order Sodium Chloride (0.9 % Sodium Chloride Flush 3 Ml Syringe) 3 ml IVFLUSH QSHIFT [facility] Home Medications ?Medication ?Instructions ?Recorded ?Confirmed ?Last Taken ?Type atorvastatin 40 mg tablet 40 mg PO BEDTIME 06/07/22 05/19/24 Unknown History empagliflozin 25 mg tablet 25 mg PO DAILY 06/07/22 05/19/24 Unknown History (Jardiance) glipizide 5 mg tablet 2.5 mg PO DAILY 06/07/22 05/19/24 Unknown History labetalol 200 mg tablet 200 mg PO BID 06/07/22 05/19/24 Unknown History losartan 50 mg tablet 50 mg PO DAILY 06/07/22 05/19/24 Unknown History sertraline 50 mg tablet 75 mg PO DAILY 06/07/22 05/19/24 Unknown History cholecalciferol (vitamin D3) 1,250 1,250 mcg PO MORENO 05/19/24 05/19/24 Unknown History mcg (50,000 unit) capsule cyanocobalamin (vitamin B-12) 1,000 mcg PO DAILY 05/19/24 05/19/24 Unknown History 1,000 mcg tablet (Vitamin B-12) folic acid 1 mg tablet 1 mg PO DAILY 05/19/24 05/19/24 Unknown History levothyroxine 100 mcg tablet 100 mcg PO DAILY 05/19/24 05/19/24 Unknown History losartan 25 mg tablet 25 mg PO DAILY 05/19/24 05/19/24 Unknown History mirabegron 25 mg tablet,extended 25 mg PO DAILY 05/19/24 05/19/24 Unknown History release 24 hr (Myrbetriq) Physical Exam 2 Vital Signs and Narrative: Vital Signs: Last Vital Signs Temp 102.6 F H 05/20/24 00:32 Pulse 114 H 05/20/24 00:32 Resp 27 H 05/20/24 00:32 BP 220/98 H 05/19/24 22:15 Pulse Ox 93 05/19/24 22:15 O2 Del Method Room Air 05/19/24 22:15 BMI result Body Mass Index 25.5 Constitutional - Sedated (received Ativan IV). Febrile HEENT - PERRLA. normal sclera. Dry oral mucosa. Heart - Tachycardic. Lungs - Normal lung expansion, poor respiratory effort, No respiratory distress, CTA bilaterally Abdomen - NT / ND; +BS; No rebound or guarding Extremities - no calf tenderness bilaterally, no swelling - Indwelling urinary catheter in place. Clear yellow urine. Musculoskeletal - Normal inspection, normal ROM Skin - Warm/Dry Neurological - Sedated. Moaning to sternal rub. Left hand movement noted. Psychological - No agitation. Results Labs 05/19/24 22:56 05/19/24 22:56 Labs: Laboratory Results - last 24 hr 05/19/24 05/19/24 05/19/24 22:55 22:56 23:52 MCV 88.2 MCH 30.4 MCHC 34.5 RDW 12.9 Plt Count 266 MPV 10.9 Immature Gran % (Auto) 0.4 Neut % (Auto) 91.1 H Lymph % (Auto) 6.0 L [place] % (Auto) 1.5 L Eos % (Auto) 0.1 Baso % (Auto) 0.9 Lymph # (Auto) 0.6 L [place] # (Auto) 0.2 Eos # (Auto) 0.0 Baso # (Auto) 0.1 Abs Immat Gran (auto) 0.04 H Absolute Neuts (auto) 9.3 H Absolute Nucleated RBC 0.000 Nucleated RBC % (auto) 0.0 Smear Tech's Comments VERIFIED Anion Gap 19 Estim Creat Clear Calc 36.0 Estimated GFR 44 Random Glucose 205 H Lactic Acid 1.2 Calcium 10.9 H Total Bilirubin 0.7 Direct Bilirubin 0.2 AST 29 ALT 18 Alkaline Phosphatase 71 C-Reactive Protein 0.12 Total Protein 8.0 Albumin 4.4 Urine Color Yellow Urine Appearance Clear Urine pH 6.0 Ur Specific [place] >= 1.030 H Urine Protein 300 (3+) H Urine Glucose (UA) >=1000 H Urine Ketones 40 Urine Blood Small (1+) H Urine Nitrite Negative Ur Leukocyte Esterase Negative Urine RBC 0-2 Urine WBC 0-5 Ur Squamous Epith Cells 3-5 Urine Bacteria 1+ Hyaline Casts 0-2 Influenza Type A (PCR) NEGATIVE Influenza Type B (PCR) NEGATIVE RSV RNA Qual (PCR) NEGATIVE SARS-CoV-2 RNA (RT-PCR) NEGATIVE Imaging Radiologist's Impressions: Impressions Head CT 05/19/24 23:11 IMPRESSION: 1. No acute intracranial pathology. 2. 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 These results were discussed with Yung Pillai MD by telephone on 05/19/2024 at 11:26 PM and it was ascertained that the content of the report was understood at the time of direct communication. Head/Neck CTA 05/19/24 23:29 IMPRESSION: HEAD CT: 1. No acute intracranial hemorrhage or edematous infarction. 2. Chronic changes including moderate ischemic microangiopathy and generalized volume loss. CTA HEAD/NECK: No high-grade stenosis or proximal occlusion of the vasculature of the head and neck. NONVASCULAR: Numerous peripherally enhancing collections throughout the right greater than left thyroid concerning for multifocal abscess versus necrosis/malignancy. Dedicated thyroid ultrasound is recommended. Chest X-Ray 05/20/24 00:05 IMPRESSION: No acute cardiopulmonary process. Assessment and Plan (1) Seizures: Status: Acute (2) Fever: Qualifiers: Fever type: unspecified Qualified Code(s): R50.9 - Fever, unspecified Status: Acute (3) Acute meningitis: Status: Acute Plan Hazel Restrepo is a 83 y/o woman with PMHx significant for dementia admitted with: * Fever, seizure-like activity + acute mental changes. Acute meningitis viral versus bacterial; ?stroke. Admit to hospitalist service. NPO. Start IV fluids. Start empiric IV antibiotic therapy vancomycin, ampicillin and ceftriaxone. Dexamethasone to give before antibiotics initiation. LP done by ED, CSF results are pending (including encephalitis/meningiis panel). [place]t precautions if bacterial meningitis. To consider acyclovir IV and brain MRI if CSF does not suggest bacterial infection. Aspiration, seizures and fall precautions.Blood and CSF cultures obtained -will follow results. Neurology and ID consults * Type 2 diabetes mellitus. BG checks every 6 hours while NPO. Insulin sliding scale. Glipizide and empagliflozin on hold -NPO. * Hypothyroidism. TSH is normal. Continue levothyroxine. * Essential hypertension. Labetalol IV as needed. Labetalol PO a losartan on hold -NPO. * Hyperlipidemia. Statin on hold -NPO. * Depression. Sertraline on hold -NPO. DVT prophylaxis: SCDs only for now -s/p LP Code status: DNR/DNI (per daughter) Patient will need hospitalization for at least 2 midnights for meningitis management and treatment with empiric IV antibiotic therapy, close monitoring of vital signs, blood/CSF workup and evaluation by subspecialties. Quality Stroke Does the patient have a stroke diagnosis?: No VTE Prior VTE?: No VTE Risk Level:: Medical - moderate - high VTE Device Contraindication: N/A - Device Ordered VTE Drug Contraindication: Treatment Not Indicated
[2024-05-20] MEDS: dexAMETHasone sod phosphate 10 MG/ML VIAL IVPUSH ×4 (03:12→19:39)
[2024-05-20] MEDS: Lactated Ringers 1,000 ML 100 ML IVCONT (03:18)
[2024-05-20 03:50] LABS: Appearance CSF CLEAR; CSF Tube # 4; Color CSF COLORLESS
[2024-05-20 03:51] LABS: Glucose CSF 99 mg/dL; Red Blood Cell CSF 0 MM*3; Total Protein CSF 73.7 mg/dL (15-45); White Blood Cell CSF 1 MM*3
[2024-05-20 03:55] LABS: CSF Appearance Clear, Colorless; CSF Tube # 1
[2024-05-20] MEDS: Ampicillin Sodium 2 GM in 0.9 % Sodium Chloride 100 ML IV ×3 (04:02→17:10)
--- NOTE | 2024-05-20 04:06 | PC.NURSE ---
Pt medicated per jan. Plan of care ongoing.
[2024-05-20 04:13] LABS: CSF Monos 25 %; Lymphocytes CSF 75 %
[2024-05-20] MEDS: vancomycin HCL 1,000 MG, vancomycin HCL 750 MG in 0.9 % Sodium Chloride 500 ML 267.5 MG IV (04:41)
--- NOTE | 2024-05-20 04:48 | PC.NURSE ---
Pt medicated per jan. plan of care ongoing.
[2024-05-20 05:21] LABS: Cryptococcus neoformans/gattii Not Detected (Not Detect.); Enterovirus Not Detected (Not Detect.); Escherichia coli K1 Not Detected (Not Detect.); Haemophilus influenzae Not Detected (Not Detect.); Herpes simplex virus 1 Not Detected (Not Detect.); Herpes simplex virus 2 Not Detected (Not Detect.); Human herpesvirus 6 Not Detected (Not Detect.); Human parechovirus Not Detected (Not Detect.); Listeria monocytogenes Not Detected (Not Detect.); Neisseria meningitidis Not Detected (Not Detect.); Streptococcus agalactiae Not Detected (Not Detect.); Streptococcus pneumoniae Not Detected (Not Detect.); Varicella zoster virus Not Detected (Not Detect.)
--- NOTE | 2024-05-20 05:38 | PC.NURSE ---
Pts temp @ 102.0 provider esperanza notified. No Tylenol Sup 650 in Pyxis provider notified and aware. New orders entered. Plan of care ongoing.
[2024-05-20] MEDS: Acetaminophen 1,000 MG/100 ML PIGGYBACK 400 MG IV (06:06)
[2024-05-20 06:08] LABS: Glucose, Whole Blood 164 mg/dL (60-115)
[2024-05-20] MEDS: Insulin Lispro 100 UNIT/ML 3 ML VIAL SUBCUT ×3 (06:23→17:11)
--- NOTE | 2024-05-20 06:25 | PC.NURSE ---
Pt medicated per jan. Plan of care ongoing.
--- NOTE | 2024-05-20 07:02 | PC.NURSE ---
Acyclovir pulled by this RN and given to the RN assuming care. Plan of care ongoing.
[2024-05-20 07:29] LABS: MANUAL DIFF FLAG NO
[2024-05-20 07:34] LABS: Basophils Absolute Auto 0.1 X10*3/uL (0.0-0.2); Basophils Percent Auto 0.6 % (0-2); Hematocrit 43.6 % (37.0-47.0); Hemoglobin 14.6 g/dl (12.0-16.0); Imm Gran Abs Auto 0.03 X10*3/uL (0.00-0.03); Imm Gran Pct Auto 0.4 % (0.0-0.4); Lymphocytes Absolute Auto 0.6 X10*3/uL (1.2-4.9); Mean Corpuscular HGB Conc 33.5 g/dl (31.0-35.0); Mean Corpuscular Hemoglobin 30.5 pg (27.0-33.0); Mean Corpuscular Volume 91.2 fL (80.0-98.0); Mean Platelet Volume 11.2 fL (9.4-12.3); Monocytes Absolute Auto 0.2 X10*3/uL (0.1-1.2); Monocytes Percent Auto 2.6 % (2-11); Neutrophils Absolute Auto 7.1 x10*3/uL (2.0-8.3); Neutrophils Percent Auto 88.4 % (45-73); Platelet Count 211 X10*3/uL (160-400); Red Blood Count 4.78 X10*6/uL (4.20-5.50); Red Cell Distribution Width 13.2 % (11.0-16.0); White Blood Count 8.1 X10*3/uL (4.8-10.8)
[2024-05-20 08:04] LABS: Alanine Aminotransferase 15 U/L (0-31); Albumin Level 3.6 g/dL (3.5-5.0); Alkaline Phosphatase 54 U/L (39-117); Anion Gap 16 (12-20); Aspartate Amino Transferase 21 U/L (5-31); Bilirubin Total 0.4 mg/dL (0.0-1.0); Blood Urea Nitrogen 27 mg/dL (9-16); Calcium 9.5 mg/dL (8.4-10.2); Carbon Dioxide 19 mmol/L (22-29); Chloride 116 mmol/L (96-108); Creatinine Clr Calc Pharmacy 32.6; Estimated Glomerular Filt Rate 39; Glucose Random 180 mg/dL (60-115); Potassium 4.2 mmol/L (3.3-5.1); Sodium 147 mmol/L (135-145); Total Protein 6.4 g/dL (6.5-8.0)
[2024-05-20 08:38] LABS: Folate 14.2 ng/mL (> or = 4.0); Vitamin B12 > 2000 pg/mL (200-900)
[2024-05-20] MEDS: cefTRIAXone sodium 2 GM in 0.9 % Sodium Chloride 50 ML IV (08:51)
--- NOTE | 2024-05-20 09:56 | PC.NURSE ---
Pt noted to have increased RR and decreased SpO2. Dr Loza notified via tiger text. MD advised RN to raise head of bed and suction secretions, done.
--- NOTE | 2024-05-20 10:08 | PM.EVENT ---
Event Note Date of Service: 05/20/24 Event Note: Seen and evaluated this morning LP showing elevated Protein but no WBCs, negative encephalitis panel continue Vancomycin, ampicillin, Ceftriaxone and Acyclovir pending final cultures get an EEG, Echo Change MRI to w\wo contrast to r\o metastatic disease along with infectious causes CT Abd showing Ovarian mass check CA125, CA19-9 and CEA Hypernatremia of 147, start D5W and follow BMP Neurology and ID to follow Time Spent With Patient Time: Total time managing care of this patient today ____ minutes.
--- NOTE | 2024-05-20 10:18 | P.CNNE_ITS ---
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 Family found her on the floor. She was also treated for agitation and was given olanzapine. Yesterday she was noted to be more confused, febrile, a not responsive. There was no witnessing of overt convulsion. Lumbar puncture was performed that revealed moderately high CSF protein but normal cells. Meningoencephalitis panel was negative. She continues to be unresponsive. Review of Systems 2 Review of Systems: Could not be done with her [facility] Past Medical History Medical History Hypothyroidism HTN (hypertension) Diabetes Social History Social History (Updated 05/18/24 @ 12:24 by Arianne Em DO) Patient Tobacco Use Status: Never used Tobacco Advance Directives: No Advance Directives Information Provided: Yes Meds Allergies Allergy/AdvReac Type Severity Reaction Status Date / Time iodine Allergy Mild unknown Verified 05/18/24 11:50 Active Medications: Current Medications Acetaminophen (Acetaminophen Supp 650 Mg Supp.Rect) 650 mg [place] Q6H PRN PRN Reason: Fever Dexamethasone Sodium Phosphate (Dexamethasone Sod Phosphate 10 Mg/Ml Vial) 10 mg IVPUSH Q6H [facility] Last Admin: 05/20/24 08:01 Dose: 10 mg Glucose (Glucose Gel 15 Gm Gel..Gram.) 15 gm PO Q15M PRN; Protocol PRN Reason: per Hypoglycemia Standing Ord. Ceftriaxone Sodium 2 gm/ (Sodium Chloride) 50 mls @ 100 mls/hr IV Q12H [facility] Last Infusion: 05/20/24 10:04 Dose: Infused Ampicillin Sodium 2 gm/ Sodium (Chloride) 100 mls @ 200 mls/hr IV Q6H [facility] Last Admin: 05/20/24 10:03 Dose: 200 mls/hr Dextrose (D10) 250 mls @ 750 mls/hr IV Q15M PRN; Protocol PRN Reason: per Hypoglycemia Standing Ord. Acyclovir Sodium 650 mg/ (Sodium Chloride) 113 mls @ 113 mls/hr IV Q12H [facility] Dextrose/Sodium Chloride (D51/4ns) 1,000 mls @ 100 mls/hr IVCONT .Q10H [facility] Vancomycin HCl 750 mg/ Sodium (Chloride) 265 mls @ 265 mls/hr IV Q24H [facility] Insulin Human Lispro (Insulin Lispro 100 Unit/Ml 3 Ml Vial) 0 unit SUBCUT Q6H [facility]; Protocol Last Admin: 05/20/24 06:23 Dose: 2 unit Labetalol HCl (Labetalol Hcl 100 Mg/20 Ml Vial) 10 mg IVPUSH Q4H PRN PRN Reason: SBP > 170 Labetalol HCl (Labetalol Hcl 200 Mg Tablet) 200 mg PO BID [facility]; Protocol Last Admin: 05/20/24 08:57 Dose: Not Given Levothyroxine Sodium (Levothyroxine Sodium 100 Mcg Tablet) 100 mcg PO DAILY@0600 [facility] Last Admin: 05/20/24 08:57 Dose: Not Given Mirabegron (Mirabegron 25 Mg Tab.Er.24h) 25 mg PO DAILY [facility] Last Admin: 05/20/24 08:57 Dose: Not Given Pharmacy Consult (Consult Rx Vancomycin Dosing) 1 each MISCELLANE DAILY PRN PRN Reason: Consult order Sodium Chloride (0.9 % Sodium Chloride Flush 3 Ml Syringe) 3 ml IVFLUSH QSHIFT [facility] Last Admin: 05/20/24 07:38 Dose: Not Given Home Medications ?Medication ?Instructions ?Recorded ?Confirmed ?Last Taken ?Type atorvastatin 40 mg tablet 40 mg PO BEDTIME 06/07/22 05/19/24 Unknown History empagliflozin 25 mg tablet 25 mg PO DAILY 06/07/22 05/19/24 Unknown History (Jardiance) glipizide 5 mg tablet 2.5 mg PO DAILY 06/07/22 05/19/24 Unknown History labetalol 200 mg tablet 200 mg PO BID 06/07/22 05/19/24 Unknown History losartan 50 mg tablet 50 mg PO DAILY 06/07/22 05/19/24 Unknown History sertraline 50 mg tablet 75 mg PO DAILY 06/07/22 05/19/24 Unknown History cholecalciferol (vitamin D3) 1,250 1,250 mcg PO MORENO 05/19/24 05/19/24 Unknown History mcg (50,000 unit) capsule cyanocobalamin (vitamin B-12) 1,000 mcg PO DAILY 05/19/24 05/19/24 Unknown History 1,000 mcg tablet (Vitamin B-12) folic acid 1 mg tablet 1 mg PO DAILY 05/19/24 05/19/24 Unknown History levothyroxine 100 mcg tablet 100 mcg PO DAILY 05/19/24 05/19/24 Unknown History losartan 25 mg tablet 25 mg PO DAILY 05/19/24 05/19/24 Unknown History mirabegron 25 mg tablet,extended 25 mg PO DAILY 05/19/24 05/19/24 Unknown History release 24 hr (Myrbetriq) Physical Exam 2 Vital Signs: Vital Signs: Last Vital Signs Temp 101.3 F H 05/20/24 09:57 Pulse 113 H 05/20/24 09:57 Resp 32 H 05/20/24 09:57 BP 158/71 H 05/20/24 09:57 Pulse Ox 94 05/20/24 09:57 O2 Del Method Nasal Cannula 05/20/24 09:57 O2 Flow Rate 4 05/20/24 09:57 BMI result Body Mass Index 25.5 Neuro: Other: Not responsive to verbal commands. With painful stimuli she withdrew on left side with arm or leg but not with right side. There was mild right gaze deviation. Face was pendulous. Plantars were flat. Exam was limited. Results Labs 05/20/24 07:13 05/20/24 07:13 Labs: Short CBC 05/19/24 05/20/24 Range/Units 22:56 07:13 WBC 10.2 8.1 (4.8-10.8) X10*3/uL Hgb 16.3 H D 14.6 (12.0-16.0) g/dl Hct 47.3 H D 43.6 (37.0-47.0) % Plt Count 266 211 (160-400) X10*3/uL [facility] 05/19/24 05/20/24 22:56 07:13 Sodium 143 147 H Potassium 4.6 D 4.2 Chloride 108 116 H Carbon Dioxide 21 L 19 L BUN 25 H 27 H Creatinine 1.18 1.30 Calcium 10.9 H 9.5 D Liver Function 05/19/24 05/20/24 Range/Units 22:56 07:13 Total Bilirubin 0.7 0.4 (0.0-1.0) mg/dL Direct Bilirubin 0.2 (0.0-0.5) mg/dL AST 29 21 (5-31) U/L ALT 18 15 (0-31) U/L Alkaline Phosphatase 71 54 (39-117) U/L Albumin 4.4 3.6 (3.5-5.0) g/dL Urine 05/19/24 Range/Units 23:52 Urine Color Yellow Urine Appearance Clear Urine pH 6.0 (5.0-9.0) Ur Specific Warren >= 1.030 H (1.005-1.025) Urine Protein 300 (3+) H (Neg-Trace) mg/dL Urine Glucose (UA) >=1000 H (Negative) mg/dL Head CT revealed moderately severe diffuse atrophy and moderately severe chronic microvascular ischemic changes with no obvious acute lesion. 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 She was brought to hospital after she was found on the floor. While in observation unit, she was noted to be agitated and treated with olanzapine. Later she was noted to be more confused and then febrile. Lumbar puncture was performed, which revealed moderately high CSF protein but normal cells. Meningoencephalitis panel was negative. Her examination now revealed right hemiparesis and right gaze deviation. Serum sodium was high, probably from dehydration. My recommendation is to obtain noncontrast MRI of brain as we do not have an explanation of right hemiparesis. Seizure disorder causing postictal paralysis is a possibility but seems less likely. In the meantime add baby aspirin daily, continue IV hydration, and complete workup for infection. An EEG is also recommended Procedures Date of Service Date of Service: 05/20/24
--- NOTE | 2024-05-20 10:24 | PM.EVENT ---
Event Note Date of Service: 05/19/24 Event Note: pt seen for psychiatry consult; pt essentially mute. unable to assess at this time Time Spent With Patient Time: Total time managing care of this patient today _30___ minutes.
[2024-05-20] MEDS: Dextrose 5 % 1,000 ML 100 ML IVCONT (10:27)
[2024-05-20] MEDS: Acetaminophen Supp 650 MG SUPP.RECT PR (10:28)
[2024-05-20 11:21] LABS: Glucose, Whole Blood 193 mg/dL (60-115)
[2024-05-20 13:50] LABS: Anion Gap 16 (12-20); Blood Urea Nitrogen 35 mg/dL (9-16); Calcium 9.2 mg/dL (8.4-10.2); Carbon Dioxide 17 mmol/L (22-29); Chloride 118 mmol/L (96-108); Creatinine Clr Calc Pharmacy 29.8; Estimated Glomerular Filt Rate 34; Glucose Random 256 mg/dL (60-115); Potassium 3.8 mmol/L (3.3-5.1); Sodium 147 mmol/L (135-145)
--- NOTE | 2024-05-20 14:05 | PC.NURSE ---
Pt arrived from ED approximately 1300 in bed. Pt obtunded responds minimally with movement to tactile stimuli. Does not follow commands and non-verbal at this time. RUE weak with little response to painful stimuli, + movement to left side with painful stimuli as well as RLE although weaker than left. Sensation appears to be intact except RUE at this time. Difficulty assessing pupils PT squeezing eyes shut right lid weaker than left. LSCTA no SOB noted arrives on 4L oxygen satting 98% decreased to 2L via nasal cannula. Occasional sonorous breathing noted head propped forward with pillows to help. BS+X4 abdomen soft non-tender no pain noted with palpation. Cha catheter in place with clear yellow urine. Skin intact except dressing to back from LP site, pink foam placed to coccyx for prevention. Repos with pillows for comfort. Compression boots to BLE. Bed in lowest locked position alarm and camera for safety. Labs drawn and reported to Dr Loza. VSS. IV fluids infusing per order. MRI and EEG pending.
[2024-05-20] MEDS: 0.9 % Sodium Chloride Flush 3 ML SYRINGE IVFLUSH (15:38)
[2024-05-20] MEDS: gadobutroL 7.5 ML VIAL IVPUSH (16:37)
[2024-05-20 17:05] LABS: Glucose, Whole Blood 237 mg/dL (60-115)
--- NOTE | 2024-05-20 18:21 | PM.EVENT ---
Event Note Date of Service: 05/20/24 Event Note: discussed mri results with neurology, recommended to stop antibacterials as CSF ruled out bacterial infection, continue with acyclovir for now, though viral encephalitis less likely, continue keppra, start empiric therapeutic lovenox Time Spent With Patient Time: Total time managing care of this patient today ____ minutes.
[2024-05-20 19:33] LABS: Anion Gap 17 (12-20); Blood Urea Nitrogen 41 mg/dL (9-16); Calcium 9.6 mg/dL (8.4-10.2); Carbon Dioxide 19 mmol/L (22-29); Chloride 117 mmol/L (96-108); Creatinine Clr Calc Pharmacy 28.8; Estimated Glomerular Filt Rate 33; Glucose Random 259 mg/dL (60-115); Potassium 3.6 mmol/L (3.3-5.1); Sodium 149 mmol/L (135-145)
[2024-05-20] MEDS: levETIRAcetam 750 MG in 0.9 % Sodium Chloride 100 ML 430 MG IV (19:39)
[2024-05-20] MEDS: Enoxaparin Sodium 80 MG/0.8 ML SYRINGE 70 MG SUBCUT (19:39)
[2024-05-20 20:18] LABS: Glucose, Whole Blood 225 mg/dL (60-115)
[2024-05-20] MEDS: Dextrose 5 % 1,000 ML 150 ML IVCONT (20:47)
[2024-05-21] VITALS (7 sets, daily range): BP systolic 132–180; BP diastolic 60–75; PULSE 73–105; RESP 16–20; TEMP 36–36.7; O2SAT 2–97
--- NOTE | 2024-05-21 | EEG_ITS ---
This is a 16-channel EEG with an EKG lead. The patient is reported confused and restless during the tracing. Background EEG rhythm is mixed theta beta, low to medium amplitude with intermittent right hemispheric theta range slowing. No definite sharp waves or spikes are noted. Cardiac lead does not reveal any significant abnormality. Photic stimulation and hyperventilation are not performed. IMPRESSION: Abnormal EEG suggestive of generalize cerebral dysfunction with no obvious epileptic tendency. MD JEROME Pace/LUIS MANUEL / [phone]
[2024-05-21 00:01] LABS: Glucose, Whole Blood 247 mg/dL (60-115)
[2024-05-21] MEDS: Insulin Lispro 100 UNIT/ML 3 ML VIAL SUBCUT ×4 (00:04→17:07)
[2024-05-21] MEDS: Labetalol HCL 100 MG/20 ML VIAL 10 MG IVPUSH (00:33)
[2024-05-21] MEDS: dexAMETHasone sod phosphate 10 MG/ML VIAL IVPUSH ×4 (03:21→20:37)
[2024-05-21 05:42] LABS: Glucose, Whole Blood 222 mg/dL (60-115)
[2024-05-21] MEDS: Enoxaparin Sodium 80 MG/0.8 ML SYRINGE 70 MG SUBCUT (05:54)
[2024-05-21] MEDS: Dextrose 5 % 1,000 ML 80 ML IVCONT ×2 (05:54→20:35)
[2024-05-21 06:55] LABS: Hematocrit 42.5 % (37.0-47.0); Hemoglobin 13.7 g/dl (12.0-16.0); Mean Corpuscular HGB Conc 32.2 g/dl (31.0-35.0); Mean Corpuscular Hemoglobin 30.1 pg (27.0-33.0); Mean Corpuscular Volume 93.4 fL (80.0-98.0); Mean Platelet Volume 10.9 fL (9.4-12.3); Platelet Count 194 X10*3/uL (160-400); Red Blood Count 4.55 X10*6/uL (4.20-5.50); Red Cell Distribution Width 13.2 % (11.0-16.0); White Blood Count 13.1 X10*3/uL (4.8-10.8)
[2024-05-21 07:08] LABS: Anion Gap 13 (12-20); Blood Urea Nitrogen 45 mg/dL (9-16); C Reactive Protein 1.25 mg/dL (< or = 0.50); Calcium 9.4 mg/dL (8.4-10.2); Carbon Dioxide 20 mmol/L (22-29); Chloride 116 mmol/L (96-108); Creatinine Clr Calc Pharmacy 28.2; Estimated Glomerular Filt Rate 32; Glucose Random 260 mg/dL (60-115); Potassium 3.9 mmol/L (3.3-5.1); Sodium 145 mmol/L (135-145)
[2024-05-21 07:40] LABS: Erythrocyte Sedimentation Rate 6 MM/HR (0-20)
[2024-05-21] MEDS: levETIRAcetam 750 MG in 0.9 % Sodium Chloride 100 ML 430 MG IV ×2 (09:18→18:35)
[2024-05-21] MEDS: Labetalol HCL 200 MG TABLET PO ×2 (09:19→20:37)
[2024-05-21] MEDS: Mirabegron 25 MG TAB.ER.24H PO (09:20)
[2024-05-21] MEDS: 0.9 % Sodium Chloride Flush 3 ML SYRINGE IVFLUSH ×2 (09:21→17:08)
--- NOTE | 2024-05-21 11:34 | MHC.CM.PN ---
Addendum entered by Kerrie Pina 05/21/24 12:55: Pt was active with [facility]. Original Note: IMM 05/21/24. Pt lives with her at [facility] in Memory care unit, they just moved there from [facility] this week. She uses a walker, HCP is her dtrDenisha, copy is on file. If she needs STR, [facility] snf is first choice. PCP: Adali Ulloa DCP: TEDDY RODRIGUEZ to follow for DC needs.
--- NOTE | 2024-05-21 11:34 | HO.PM.IMPN ---
Subjective Subjective Date of Service: 05/21/24 Interval History: f/u on acute metabolic encephalopathy, possible ecephalitis Patient remains confused but per report mental status is getting better Physical Exam Vital Signs: Vital Signs: Last Vital Signs Temp 97.1 F 05/21/24 07:50 Pulse 88 05/21/24 07:50 Resp 19 05/21/24 07:50 BP 156/70 H 05/21/24 07:50 Pulse Ox 97 05/21/24 07:50 O2 Del Method Nasal Cannula 05/21/24 07:50 O2 Flow Rate 3 05/21/24 07:50 BMI result Body Mass Index 26.5 General: AO X 3, no acute distress Resp: CTA bilateral CVS: S1,S2,RRR GI: +BS, NT, no distention Skin: No rash Neuro: motor grossly intact Psych: appropriate affect Objective Data Active Medications Acetaminophen (Acetaminophen Supp 650 Mg Supp.Rect) 650 mg [place] Q6H PRN PRN Reason: Fever Last Admin: 05/20/24 10:28 Dose: 650 mg Documented By: JOSEE Dexamethasone Sodium Phosphate (Dexamethasone Sod Phosphate 10 Mg/Ml Vial) 10 mg IVPUSH Q6H [facility] Last Admin: 05/21/24 09:20 Dose: 10 mg Documented By: AYESHA Enoxaparin Sodium (Enoxaparin Sodium 80 Mg/0.8 Ml Syringe) 70 mg 1 mg/kg (70 mg) SUBCUT Q24H [facility] Glucose (Glucose Gel 15 Gm Gel..Gram.) 15 gm PO Q15M PRN; Protocol PRN Reason: per Hypoglycemia Standing Ord. Dextrose (D10) 250 mls @ 750 mls/hr IV Q15M PRN; Protocol PRN Reason: per Hypoglycemia Standing Ord. Acyclovir Sodium 650 mg/ (Sodium Chloride) 113 mls @ 113 mls/hr IV Q12H [facility] Last Infusion: 05/21/24 09:18 Dose: Infused Documented By: AYESHA Dextrose (D5w) 1,000 mls @ 80 mls/hr IVCONT .[id number] [facility] Last Admin: 05/21/24 05:54 Dose: 80 mls/hr Documented By: SHAMIKA Levetiracetam 750 mg/ Sodium (Chloride) 107.5 mls @ 430 mls/hr IV Q12H [facility] Last Infusion: 05/21/24 11:18 Dose: Infused Documented By: AYESHA Insulin Human Lispro (Insulin Lispro 100 Unit/Ml 3 Ml Vial) 0 unit SUBCUT Q6H [facility]; Protocol Last Admin: 05/21/24 05:53 Dose: 4 unit Documented By: SHAMIKA Labetalol HCl (Labetalol Hcl 100 Mg/20 Ml Vial) 10 mg IVPUSH Q4H PRN PRN Reason: SBP > 170 Last Admin: 05/21/24 00:33 Dose: 10 mg Documented By: SHAMIKA Labetalol HCl (Labetalol Hcl 200 Mg Tablet) 200 mg PO BID [facility]; Protocol Last Admin: 05/21/24 09:19 Dose: 200 mg Documented By: AYESHA Levothyroxine Sodium (Levothyroxine Sodium 100 Mcg Tablet) 100 mcg PO DAILY@0600 [facility] Last Admin: 05/21/24 05:02 Dose: Not Given Documented By: SHAMIKA Non-Admin Reason: NPO Mirabegron (Mirabegron 25 Mg Tab.Er.24h) 25 mg PO DAILY [facility] Last Admin: 05/21/24 09:20 Dose: 25 mg Documented By: AYESHA Sodium Chloride (0.9 % Sodium Chloride Flush 3 Ml Syringe) 3 ml IVFLUSH QSHIFT [facility] Last Admin: 05/21/24 09:21 Dose: 3 ml Documented By: AYESHA Labs 05/21/24 06:19 05/21/24 06:19 Labs: Laboratory Results - last 24 hr 05/20/24 05/20/24 05/20/24 13:22 17:01 19:05 MCV MCH MCHC RDW Plt Count MPV Absolute Nucleated RBC Nucleated RBC % (auto) ESR Anion Gap 16 17 Estim Creat Clear Calc 29.8 28.8 Estimated GFR 34 33 POC Glucose 237 H Random Glucose 256 H 259 H Calcium 9.2 9.6 Total Creatine Kinase 46 C-Reactive Protein Carcinoembryonic Ag 3.00 05/20/24 05/20/24 05/21/24 20:14 23:58 05:39 MCV MCH MCHC RDW Plt Count MPV Absolute Nucleated RBC Nucleated RBC % (auto) ESR Anion Gap Estim Creat Clear Calc Estimated GFR POC Glucose 225 H 247 H 222 H Random Glucose Calcium Total Creatine Kinase C-Reactive Protein Carcinoembryonic Ag 05/21/24 06:19 MCV 93.4 MCH 30.1 MCHC 32.2 RDW 13.2 Plt Count 194 MPV 10.9 Absolute Nucleated RBC 0.000 Nucleated RBC % (auto) 0.0 ESR 6 Anion Gap 13 Estim Creat Clear Calc 28.2 Estimated GFR 32 POC Glucose Random Glucose 260 H Calcium 9.4 Total Creatine Kinase C-Reactive Protein 1.25 H Carcinoembryonic Ag Microbiology Microbiology Results: Microbiology 05/20/24 03:15 Gram Stain - Final Cerebrospinal Fluid CSF Examination - Final Fluid Description - Final CSF Culture - Preliminary No growth after 1 day 05/19/24 22:55 Blood Culture - Preliminary Blood - Venous No growth after 24 hours. 05/19/24 22:55 Blood Culture - Preliminary Blood - Venous No growth after 24 hours. Assessment and Plan (1) Encephalopathy: Status: Acute (2) Seizure-like activity: Status: Acute Plan 83 y/o woman with PMHx significant for dementia admitted with: Fever, seizure-like activity and metabolic encephalopathy. Initial concern for meningitis and was started on IV Abx and Acyclovir, however LP showed no evidence of bacterial meningitis and so Abx stop and Acyclovir continued. An MRI showed finding suspicious for posssible vasculitis or thrombosis. Vasculitis not supported by low normal ESR and relatively low CRP. Lovneox is initiated for possible thrombosis. Neuro to follow up continue steroid for now. Seizure-like activity--continue Keppar , EEG Type 2 diabetes mellitus. BG checks every 6 hours while NPO. Insulin sliding scale. Glipizide and empagliflozin on hold -NPO. Hypothyroidism. TSH is normal. Continue levothyroxine. Essential hypertension. Labetalol IV as needed. Labetalol PO and losartan on hold -NPO. Hyperlipidemia. Statin on hold -NPO. Speech eval for NPO Depression. Sertraline on hold -NPO. DVT prophylaxis:lovenox Code status: DNR/DNI (per daughter) need for inpatient: Acute encephalpaty, acute cerebral trombosis with oncologing work up and acute treatment Quality Stroke Does the patient have a stroke diagnosis?: No VTE Prior VTE?: No VTE Risk Level:: Medical - moderate - high VTE Device Contraindication: N/A - Device Ordered VTE Drug Contraindication: Treatment Not Indicated
[2024-05-21 12:08] LABS: Glucose, Whole Blood 220 mg/dL (60-115)
--- NOTE | 2024-05-21 15:34 | MHC.SL.SWA ---
Speech Pathologist Impression: Oral phase dysphagia, risk of aspiration Risk of Aspiration Due to: Reduced Cognition Dysphasia Diet Status: Upgrade from NPO, start on NDD3/THIN Liquid Consistency and Strategies for Safe Swallow: Liquid Intake Recommendation: Thin Liquid Intake Strategies: Small Sips No Straws Solid Food Consistency: Dietary Recommendations: Chopped/Advanced (NDD3) Additional Modifications to Solid Foods: Recommend UPGRADE from NPO, START on CHOPPED/ADVANCED (NDD3) diet and THIN liquids, pills to be CRUSHED in PUREE. Patient w/ hx dementia, difficulty feeding self d/t confusion. She will need 1:1 assistance feeding and aspiration precautions. Oral Medication Intake: Crushed with Puree Please contact the pharmacy regarding appropriate crushable or liquid drug formulations that are available whenever modified delivery is recommended. Compensatory Strategies and Precautions to be Taken for Safe Swallow: Sitting Upright (90 deg) No Straw Small Bites and Sips Alternate Liquids/Solids Rate of Ingestion Change Oral Check Avoid Specific Foods Supervision While Eating and Drinking for Safe Swallow: Total Assistance (1:1) Foods to Avoid: Hard, tough to chew solids Swallowing Recommended Treatments: Compens. Strategy Educat. Recommendation for Speech: Inpatient Speech Therapy Comment: 1:1 feed Frequency/Duration: M-F PRN Date Range for Service Req: Timeline to reassess: Control Clerk Clinican/Clinical Fellow: No Supervisory Statement: I have reviewed and agree with the student/clinical fellow's documentation: N/A Speech Language Pathologist: Betty Reyes M.A., CCC-CHANNEL DEVELOPMENT DIRECTOR
[2024-05-21 16:17] LABS: Glucose, Whole Blood 191 mg/dL (60-115)
--- NOTE | 2024-05-21 16:43 | P.CNID_ITS ---
History of Present Illness Data of Consult Service Date: 05/21/24 Requesting physician: Spencer Romero Primary Care Provider: Adali Ulloa MD HPI Reason for consult: fever of unknown origin She was found down at assisted living and brought to hospital. She has somewhat elevated protein in CSF with no elevated WBC and neg meningitis/encephalitis panel. She has negative UA. CT abdomen and pelvis 5 cm adnexal cyst possible malignancy. There is no pneumonia at this time. Review of Systems 2 Review of Systems: Yes Unobtainable due to mental condition [facility] Past Medical History Medical History Hypothyroidism HTN (hypertension) Diabetes Family History Family history: reviewed and not pertinent Social History Social History Household Members: Unknown / Unable to assess Housing: Unknown / Unable to assess Do you presently have visiting nurse or other home services: No Unable to assess alcohol history related to: Unable to respond Patient Tobacco Use Status: Never used Tobacco service: No Meds Allergies Allergy/AdvReac Type Severity Reaction Status Date / Time iodine Allergy Mild unknown Verified 05/18/24 11:50 Active Medications: Current Medications Acetaminophen (Acetaminophen Supp 650 Mg Supp.Rect) 650 mg [place] Q6H PRN PRN Reason: Fever Last Admin: 05/20/24 10:28 Dose: 650 mg Dexamethasone Sodium Phosphate (Dexamethasone Sod Phosphate 10 Mg/Ml Vial) 10 mg IVPUSH Q6H [facility] Last Admin: 05/21/24 15:20 Dose: 10 mg Enoxaparin Sodium (Enoxaparin Sodium 80 Mg/0.8 Ml Syringe) 70 mg 1 mg/kg (70 mg) SUBCUT Q24H [facility] Glucose (Glucose Gel 15 Gm Gel..Gram.) 15 gm PO Q15M PRN; Protocol PRN Reason: per Hypoglycemia Standing Ord. Dextrose (D10) 250 mls @ 750 mls/hr IV Q15M PRN; Protocol PRN Reason: per Hypoglycemia Standing Ord. Acyclovir Sodium 650 mg/ (Sodium Chloride) 113 mls @ 113 mls/hr IV Q12H [facility] Last Infusion: 05/21/24 09:18 Dose: Infused Dextrose (D5w) 1,000 mls @ 80 mls/hr IVCONT .[id number] [facility] Last Admin: 05/21/24 05:54 Dose: 80 mls/hr Levetiracetam 750 mg/ Sodium (Chloride) 107.5 mls @ 430 mls/hr IV Q12H [facility] Last Infusion: 05/21/24 11:18 Dose: Infused Insulin Human Lispro (Insulin Lispro 100 Unit/Ml 3 Ml Vial) 0 unit SUBCUT Q6H [facility]; Protocol Last Admin: 05/21/24 12:43 Dose: 4 unit Labetalol HCl (Labetalol Hcl 100 Mg/20 Ml Vial) 10 mg IVPUSH Q4H PRN PRN Reason: SBP > 170 Last Admin: 05/21/24 00:33 Dose: 10 mg Labetalol HCl (Labetalol Hcl 200 Mg Tablet) 200 mg PO BID [facility]; Protocol Last Admin: 05/21/24 09:19 Dose: 200 mg Levothyroxine Sodium (Levothyroxine Sodium 100 Mcg Tablet) 100 mcg PO DAILY@0600 [facility] Last Admin: 05/21/24 05:02 Dose: Not Given Mirabegron (Mirabegron 25 Mg Tab.Er.24h) 25 mg PO DAILY [facility] Last Admin: 05/21/24 09:20 Dose: 25 mg Sodium Chloride (0.9 % Sodium Chloride Flush 3 Ml Syringe) 3 ml IVFLUSH QSHIFT [facility] Last Admin: 05/21/24 09:21 Dose: 3 ml Home Medications ?Medication ?Instructions ?Recorded ?Confirmed ?Last Taken ?Type atorvastatin 40 mg tablet 40 mg PO BEDTIME 06/07/22 05/19/24 Unknown History empagliflozin 25 mg tablet 25 mg PO DAILY 06/07/22 05/19/24 Unknown History (Jardiance) glipizide 5 mg tablet 2.5 mg PO DAILY 06/07/22 05/19/24 Unknown History labetalol 200 mg tablet 200 mg PO BID 06/07/22 05/19/24 Unknown History losartan 50 mg tablet 50 mg PO DAILY 06/07/22 05/19/24 Unknown History sertraline 50 mg tablet 75 mg PO DAILY 06/07/22 05/19/24 Unknown History cholecalciferol (vitamin D3) 1,250 1,250 mcg PO MORENO 05/19/24 05/19/24 Unknown History mcg (50,000 unit) capsule cyanocobalamin (vitamin B-12) 1,000 mcg PO DAILY 05/19/24 05/19/24 Unknown History 1,000 mcg tablet (Vitamin B-12) folic acid 1 mg tablet 1 mg PO DAILY 05/19/24 05/19/24 Unknown History levothyroxine 100 mcg tablet 100 mcg PO DAILY 05/19/24 05/19/24 Unknown History losartan 25 mg tablet 25 mg PO DAILY 05/19/24 05/19/24 Unknown History mirabegron 25 mg tablet,extended 25 mg PO DAILY 05/19/24 05/19/24 Unknown History release 24 hr (Myrbetriq) Physical Exam 2 Vital Signs: Vital Signs: Last Vital Signs Temp 98.0 F 05/21/24 15:02 Pulse 78 05/21/24 15:02 Resp 20 05/21/24 15:02 BP 157/68 H 05/21/24 15:02 Pulse Ox 97 05/21/24 15:02 O2 Del Method Nasal Cannula 05/21/24 15:02 O2 Flow Rate 1.5 05/21/24 15:02 BMI result Body Mass Index 26.5 Const: General: cooperative HEENT: Head: Yes normal to inspection Face and sinus: Yes normal facial exam Mouth: Normal oral and palatal mucosa present Teeth and gingiva: d entition normal Eyes: General: appearance normal, both eyes and all related structures P upils: Equal, round and reactive pupils present Resp: Effort & Inspection: normal respiratory effort Cardio: Rate: regular rate Rhythm: regular rhythm GI: Palpation (GI): Soft to palpation and nontender : General: Yes no CVA tenderness Back/Spine/Pelvis: Back: no CVA tenderness Skin: General skin exam: no rashes or lesions noted Neuro: General: moves all extremities Cranial nerves: Yes Equal, round and reactive pupils present Extrem: General: Yes normal to inspection Psych: Other: encephalopathic ,nonfocal but ?right gaze deviation Results Labs 05/21/24 06:19 05/21/24 06:19 Labs: Short CBC 05/21/24 Range/Units 06:19 WBC 13.1 H (4.8-10.8) X10*3/uL Hgb 13.7 (12.0-16.0) g/dl Hct 42.5 (37.0-47.0) % Plt Count 194 (160-400) X10*3/uL BMP 05/20/24 05/21/24 19:05 06:19 Sodium 149 H 145 Potassium 3.6 3.9 Chloride 117 H 116 H Carbon Dioxide 19 L 20 L BUN 41 H 45 H Creatinine 1.50 H 1.53 H Calcium 9.6 9.4 Microbiology Microbiology Results: Microbiology 05/20/24 03:15 Cerebrospinal Fluid Gram Stain - Final 05/20/24 03:15 Cerebrospinal Fluid CSF Examination - Final 05/20/24 03:15 Cerebrospinal Fluid Fluid Description - Final 05/20/24 03:15 Cerebrospinal Fluid CSF Culture - Preliminary No growth after 1 day 05/19/24 22:55 Blood - Venous Blood Culture - Preliminary No growth after 24 hours. 05/19/24 22:55 Blood - Venous Blood Culture - Preliminary No growth after 24 hours. Assessment and Plan (1) Encephalopathy: Status: Acute (2) Altered mental status: Status: Acute (3) Seizure-like activity: Status: Acute Plan encephalopathy possible viral ?West Nile Neg MRI for HSV encephalitis as is meningitis/encephaliits panel Would consider stop Acyclovir. Recheck CXR if febrile again ? developing aspiraton pneumona. Increased protein CSF could be postictal
[2024-05-22] VITALS (8 sets, daily range): BP systolic 139–175; BP diastolic 65–87; PULSE 69–84; RESP 16–21; TEMP 36.1–36.8; O2SAT 93–97
[2024-05-22 00:24] LABS: Glucose, Whole Blood 198 mg/dL (60-115)
[2024-05-22] MEDS: Insulin Lispro 100 UNIT/ML 3 ML VIAL SUBCUT ×4 (00:45→17:24)
[2024-05-22] MEDS: dexAMETHasone sod phosphate 10 MG/ML VIAL IVPUSH ×2 (02:41→08:49)
[2024-05-22] MEDS: Enoxaparin Sodium 80 MG/0.8 ML SYRINGE 70 MG SUBCUT (05:05)
[2024-05-22] MEDS: Levothyroxine Sodium 100 MCG TABLET PO (05:05)
[2024-05-22 05:11] LABS: Glucose, Whole Blood 177 mg/dL (60-115)
--- NOTE | 2024-05-22 07:00 | CA_ITS ---
Transthoracic Echocardiogram Patient (Last, First, Middle): Hazel Restrepo, Gender: Female Date of : 1940 Age: 83 Procedure Date: 05/22/2024 Procedure Type: Transthoracic Echocardiogram [place] [facility] [place]: 167.64 cm Weight: 74.39 kg BSA: 1.84 m2 Heart Rate: 80 bpm BP: 132 / 60 mmHg Supervisor Cured Meats: SB Referring MD: Amrik Mohan MD Account Executive Key Accounts: Mumtaz Escobar MD Symptoms: Pericardial effusion Study Quality: Adequate ECG Rhythm: Sinus Conclusions: - 1. Moderate to large pericardial effusion, more prominent near the left ventricle without IVC plethora, would suggest no evidence of tamponade 2. Normal LV ejection fraction of 60 65% with impaired relaxation filling pattern 3. Early mild aortic stenosis 4. Normal RV systolic pressure Findings Left Ventricle Normal left ventricular size, thickness, and systolic function. The visually estimated ejection fraction is between 60-65%. Spectral Doppler is indicative of an impaired relaxation filling pattern. E/E prime ratio is between 8 and 15 consistent with indeterminate filling pressures. Right Ventricle Normal right ventricular cavity size and systolic function. Atria The left atrium is likely dilated. There is no evidence of interatrial shunt. The right atrium is normal in size. Aortic Valve There is mild calcification of the aortic valve. The peak aortic velocity is 1.64 m/s with a calculated peak gradient of 11 mmHg. There is no aortic valve regurgitation. Mitral Valve There is mild anterior and posterior mitral leaflet thickening. There is trace mitral valve regurgitation. There is no mitral valve stenosis. Pulmonic Valve The pulmonic valve is likely normal. Tricuspid Valve Normal tricuspid valve structure. There is mild tricuspid valve regurgitation. The right ventricular systolic pressure is normal. The right ventricular systolic pressure is 28 mmHg. Normal right atrial pressure. There is no evidence of pulmonary hypertension. Great Vessels All visible segments of the aorta are normal in size. The pulmonary artery was not well visualized. There is no dilatation of the ascending aorta. Venous The inferior vena cava is normal in size and collapses greater than 50% with inspiration. Pericardium/Pleural There is a moderate circumferential pericardial effusion. There are no definitive echocardiographic findings of tamponade physiology. The inferior vena cava is normal in size with preserved respiratory variability. There is excessive respiratory variation of the tricuspid valve Doppler velocities. Prior Study Comparison No prior study available for comparison. Measurements 2D Linear Measurements IVSd: 0.71 0.6-0.9/0.6-1.0 cm LVIDd: 4.42 3.9-5.3/4.2-5.9 cm LVIDd Index: 2.40 2.4-3.2/2.2-3.1 cm/m2 LVIDs: 2.58 2.0-3.6 cm LVPWd: 0.89 0.7-1.1 cm LA Diam: 3.50 2.7-3.8/3.0-4.0 cm LAIDs Index: 1.90 1.5-2.3 cm/m2 LV Mass: 137.20 67-162/88-224 g LV Mass Index: 74.57 43-95/49-115 g/m2 LVOT Diam: 1.70 3.0+(-)1.3 cm 2D Systolic Function EF 4C: 64.20 >55% EF 2C: 57.50 >55% EF BiP: 62.50 >55% Mitral Valve MV Pk E: 0.72 MV PK A: 0.96 MV Decel Time: 204.00 E/A: 0.80 E'Lateral: 5.11 E'Medial: 4.68 E/E' Med: 15.40 E/E' Lat: 14.10 PHT: 60.00 MVA PHT: 3.67 Decel [place]: 3.52 Aortic Valve AoV Pk Otoniel: 1.64 AoV Pk Grad: 11.00 ROOPA: 1.70 LVOT LVOT Pk Otoniel: 1.25 LVOT Mn Otoniel: 0.85 LVOT VTI: 0.29 LVOT Pk Grad: 6.00 LVOT Mn Grad: 4.00 LVOT Diam: 1.70 LVOT Area: 2.27 Diastolic Function MV Pk E: 0.72 MV Pk A: 0.96 E/A: 0.80 E'Medial: 4.68 E/E' Med: 15.40 E' Laterial: 5.11 E/E' Lat: 14.10 Right Ventricle TAPSE (mm): 19.40 TVS' Otoniel: 10.60 Tricuspid Valve TR Pk Otoniel: 2.48 TR Pk Grad: 25.00 RA Press: 3.00 RVSP: 28.00 Great Vessels Aorta Sinus of Valsalva: 2.90 2.0-3.5 cm Ao Asc: 2.70 2.1-3.4 cm Pulmonary Valve PV Pk Otoniel: 1.33 Peak PV Grad: 7.00 Updated in Other Vendor System with Status of Final Mumtaz Escobar MD electronically signed on 05/22/2024 1:51:34 PM with status of Final
[2024-05-22] MEDS: levETIRAcetam 750 MG in 0.9 % Sodium Chloride 100 ML 430 MG IV ×2 (08:47→20:00)
[2024-05-22] MEDS: 0.9 % Sodium Chloride Flush 3 ML SYRINGE IVFLUSH ×3 (08:48→23:20)
[2024-05-22] MEDS: Labetalol HCL 200 MG TABLET PO ×2 (08:49→20:23)
[2024-05-22] MEDS: Mirabegron 25 MG TAB.ER.24H PO (08:50)
--- NOTE | 2024-05-22 09:17 | P.PNIM_ITS ---
Subjective Subjective Date of Service: 05/22/24 Interval History: f/u on acute metabolic encephalopathy, possible ecephalitis vs stroke She remains very confused, speech incoherent Physical Exam 2 Vital Signs: Vital Signs: Last Vital Signs Temp 97 F 05/22/24 08:00 Pulse 83 05/22/24 08:00 Resp 16 05/22/24 08:00 BP 175/75 H 05/22/24 08:00 Pulse Ox 97 05/22/24 08:00 O2 Del Method Nasal Cannula 05/22/24 08:00 O2 Flow Rate 2 05/22/24 08:00 BMI result Body Mass Index 26.5 General: Awake yet very confused Resp: CTA bilateral CVS: S1,S2,RRR GI: +BS, NT, no distention Skin: No rash Neuro: motor grossly intact Psych: flat affect Objective Data Active Medications Acetaminophen (Acetaminophen Supp 650 Mg Supp.Rect) 650 mg SD Q6H PRN PRN Reason: Fever Last Admin: 05/20/24 10:28 Dose: 650 mg Documented By: JOSEE Dexamethasone Sodium Phosphate (Dexamethasone Sod Phosphate 10 Mg/Ml Vial) 10 mg IVPUSH Q6H ON LICENSE OF [facility] Last Admin: 05/22/24 08:49 Dose: 10 mg Documented By: AYESHA Enoxaparin Sodium (Enoxaparin Sodium 80 Mg/0.8 Ml Syringe) 70 mg 1 mg/kg (70 mg) SUBCUT Q24H ON LICENSE OF [facility] Last Admin: 05/22/24 05:05 Dose: 70 mg Documented By: SHAMIKA Glucose (Glucose Gel 15 Gm Gel..Gram.) 15 gm PO Q15M PRN; Protocol PRN Reason: per Hypoglycemia Standing Ord. Dextrose (D10) 250 mls @ 750 mls/hr IV Q15M PRN; Protocol PRN Reason: per Hypoglycemia Standing Ord. Acyclovir Sodium 650 mg/ (Sodium Chloride) 113 mls @ 113 mls/hr IV Q12H ON LICENSE OF [facility] Last Admin: 05/22/24 05:58 Dose: 113 mls/hr Documented By: SHAMIKA Dextrose (D5w) 1,000 mls @ 80 mls/hr IVCONT .[id number] ON LICENSE OF [facility] Last Admin: 05/22/24 02:50 Dose: Not Given Documented By: SHAMIKA Non-Admin Reason: IV Running Levetiracetam 750 mg/ Sodium (Chloride) 107.5 mls @ 430 mls/hr IV Q12H ON LICENSE OF [facility] Last Admin: 05/22/24 08:47 Dose: 430 mls/hr Documented By: AEYSHA Insulin Human Lispro (Insulin Lispro 100 Unit/Ml 3 Ml Vial) 0 unit SUBCUT Q6H ON LICENSE OF [facility]; Protocol Last Admin: 05/22/24 05:57 Dose: 2 unit Documented By: SHAMIKA Labetalol HCl (Labetalol Hcl 100 Mg/20 Ml Vial) 10 mg IVPUSH Q4H PRN PRN Reason: SBP > 170 Last Admin: 05/21/24 00:33 Dose: 10 mg Documented By: SHAMIKA Labetalol HCl (Labetalol Hcl 200 Mg Tablet) 200 mg PO BID ON LICENSE OF [facility]; Protocol Last Admin: 05/22/24 08:49 Dose: 200 mg Documented By: AYESHA Levothyroxine Sodium (Levothyroxine Sodium 100 Mcg Tablet) 100 mcg PO DAILY@0600 ON LICENSE OF [facility] Last Admin: 05/22/24 05:05 Dose: 100 mcg Documented By: SHAMIKA Mirabegron (Mirabegron 25 Mg Tab.Er.24h) 25 mg PO DAILY ON LICENSE OF [facility] Last Admin: 05/22/24 08:50 Dose: 25 mg Documented By: AYESHA Sodium Chloride (0.9 % Sodium Chloride Flush 3 Ml Syringe) 3 ml IVFLUSH QSHIFT ON LICENSE OF [facility] Last Admin: 05/22/24 08:48 Dose: 3 ml Documented By: AYESHA Labs 05/21/24 06:19 05/21/24 06:19 Labs: Laboratory Results - last 24 hr 05/21/24 05/21/24 05/22/24 12:04 16:10 00:19 POC Glucose 220 H 191 H 198 H 05/22/24 05:06 POC Glucose 177 H Microbiology Microbiology Results: Microbiology 05/20/24 03:15 Gram Stain - Final Cerebrospinal Fluid CSF Examination - Final Fluid Description - Final CSF Culture - Preliminary No growth after 2 days 05/19/24 22:55 Blood Culture - Preliminary Blood - Venous No growth after 48 hours. 05/19/24 22:55 Blood Culture - Preliminary Blood - Venous No growth after 48 hours. Assessment and Plan (1) Encephalopathy: Status: Acute (2) Seizure-like activity: Status: Acute Plan 83 y/o woman with PMHx significant for dementia admitted with: Fever, seizure-like activity and metabolic encephalopathy. Initial concern for meningitis and was started on IV Abx and Acyclovir, however LP showed no evidence of bacterial meningitis and so Abx stopped and Acyclovir continued for now. An MRI showed finding suspicious for posssible vasculitis or thrombosis. Vasculitis not supported by normal ESR and relatively low CRP. Lovneox is initiated for possible thrombosis. Neuro to follow up continue steroid for now. Repeat CT head today. Stop steroid Seizure-like activity--continue Keppar , EEG:Abnormal EEG suggestive of generalize cerebral dysfunction with no obvious epileptic tendency. Type 2 diabetes mellitus. Insulin sliding scale. Glipizide and empagliflozin on hold Hypothyroidism. TSH is normal. Continue levothyroxine. Essential hypertension. Labetalol IV as needed. Labetalol PO and losartan on hold until eating consistently Hyperlipidemia. Statin on hold Speech recommends NDD3/THIN , but not eating much Depression. Sertraline when eating DVT prophylaxis:lovenox Code status: DNR/DNI (per daughter) need for inpatient: Acute encephalpaty, acute cerebral trombosis with oncologing work up and acute treatment will discuss with daughter again today, daughter state patient had memory issues and was supposed to be moved to a memory unit along with and that her dementia has precipitously declined the last 2 weeks, culminating into this hospitalization Quality Stroke Does the patient have a stroke diagnosis?: No VTE Prior VTE?: No VTE Risk Level:: Medical - moderate - high VTE Device Contraindication: N/A - Device Ordered VTE Drug Contraindication: Treatment Not Indicated
[2024-05-22 11:34] LABS: Glucose, Whole Blood 305 mg/dL (60-115)
--- NOTE | 2024-05-22 11:45 | MHC.SPEECHCO ---
Pt resting on arrival. Awakens to voice, but not responding to questions and not keeping eyes open. FERN PICKER will return in the afternoon.
--- NOTE | 2024-05-22 12:37 | MHC.SPEECHCO ---
Pt still resting when Lunch tray arrived. Per RN, she did eat some breakfast, but continues to have intermittent confusion while being fed requiring increased cuing. SOLAR PANEL INSTALLATION SUPERVISOR will continue to monitor.
[2024-05-22 16:05] LABS: Glucose, Whole Blood 199 mg/dL (60-115)
[2024-05-22 19:27] LABS: Glucose, Whole Blood 175 mg/dL (60-115)
[2024-05-23] VITALS (14 sets, daily range): BP systolic 135–196; BP diastolic 60–98; PULSE 73–90; RESP 18–20; TEMP 36.2–36.8; O2SAT 93–96
[2024-05-23] MEDS: Insulin Lispro 100 UNIT/ML 3 ML VIAL SUBCUT ×3 (00:19→16:58)
[2024-05-23 00:20] LABS: Glucose, Whole Blood 167 mg/dL (60-115)
[2024-05-23] MEDS: Labetalol HCL 100 MG/20 ML VIAL 10 MG IVPUSH ×3 (00:29→16:02)
[2024-05-23] MEDS: Levothyroxine Sodium 100 MCG TABLET PO (05:32)
[2024-05-23] MEDS: Enoxaparin Sodium 80 MG/0.8 ML SYRINGE 70 MG SUBCUT (05:33)
[2024-05-23 05:36] LABS: Glucose, Whole Blood 145 mg/dL (60-115)
[2024-05-23 07:57] LABS: Hematocrit 42.8 % (37.0-47.0); Hemoglobin 14.2 g/dl (12.0-16.0); Mean Corpuscular HGB Conc 33.2 g/dl (31.0-35.0); Mean Corpuscular Hemoglobin 30.5 pg (27.0-33.0); Mean Corpuscular Volume 91.8 fL (80.0-98.0); Mean Platelet Volume 11.3 fL (9.4-12.3); Platelet Count 242 X10*3/uL (160-400); Red Blood Count 4.66 X10*6/uL (4.20-5.50); Red Cell Distribution Width 13.5 % (11.0-16.0); White Blood Count 11.8 X10*3/uL (4.8-10.8)
[2024-05-23 08:10] LABS: Anion Gap 11 (12-20); Blood Urea Nitrogen 50 mg/dL (9-16); Carbon Dioxide 23 mmol/L (22-29); Chloride 124 mmol/L (96-108); Creatinine Clr Calc Pharmacy 32.5; Estimated Glomerular Filt Rate 38; Glucose Random 181 mg/dL (60-115); Potassium 3.9 mmol/L (3.3-5.1); Sodium 154 mmol/L (135-145)
[2024-05-23] MEDS: levETIRAcetam 750 MG in 0.9 % Sodium Chloride 100 ML 430 MG IV ×2 (08:41→22:58)
[2024-05-23 08:44] LABS: CA-125 8 U/mL (<35)
[2024-05-23] MEDS: Mirabegron 25 MG TAB.ER.24H PO (08:44)
[2024-05-23] MEDS: Labetalol HCL 200 MG TABLET PO ×2 (08:44→20:34)
[2024-05-23] MEDS: 0.9 % Sodium Chloride Flush 3 ML SYRINGE IVFLUSH (08:45)
[2024-05-23] MEDS: Dextrose 5 % 1,000 ML 150 ML IVCONT ×3 (09:09→22:59)
--- NOTE | 2024-05-23 09:51 | HO.PM.IMPN ---
Subjective Subjective Date of Service: 05/23/24 Interval History: f/u on acute metabolic encephalopathy, possible ecephalitis vs stroke She remains confused, disoriented Physical Exam Vital Signs: Vital Signs: Last Vital Signs Temp 98.1 F 05/23/24 07:58 Pulse 81 05/23/24 07:58 Resp 18 05/23/24 07:58 BP 182/98 H 05/23/24 07:58 Pulse Ox 93 05/23/24 07:58 O2 Del Method Room Air 05/23/24 07:58 O2 Flow Rate 2 05/22/24 15:03 BMI result Body Mass Index 26.5 Objective Data Active Medications Acetaminophen (Acetaminophen Supp 650 Mg Supp.Rect) 650 mg [place] Q6H PRN PRN Reason: Fever Last Admin: 05/20/24 10:28 Dose: 650 mg Documented By: JOSEE Enoxaparin Sodium (Enoxaparin Sodium 80 Mg/0.8 Ml Syringe) 70 mg 1 mg/kg (70 mg) SUBCUT Q24H [facility] Last Admin: 05/23/24 05:33 Dose: 70 mg Documented By: CHRIST Glucose (Glucose Gel 15 Gm Gel..Gram.) 15 gm PO Q15M PRN; Protocol PRN Reason: per Hypoglycemia Standing Ord. Dextrose (D10) 250 mls @ 750 mls/hr IV Q15M PRN; Protocol PRN Reason: per Hypoglycemia Standing Ord. Acyclovir Sodium 650 mg/ (Sodium Chloride) 113 mls @ 113 mls/hr IV Q12H [facility] Last Admin: 05/23/24 08:58 Dose: Not Given Documented By: ROSALINE Non-Admin Reason: Physician Approved Levetiracetam 750 mg/ Sodium (Chloride) 107.5 mls @ 430 mls/hr IV Q12H [facility] Last Infusion: 05/23/24 09:09 Dose: Infused Documented By: ROSALINE Dextrose (D5w) 1,000 mls @ 150 mls/hr IVCONT .Q6H40M [facility] Last Admin: 05/23/24 09:09 Dose: 150 mls/hr Documented By: ROSALINE Insulin Human Lispro (Insulin Lispro 100 Unit/Ml 3 Ml Vial) 0 unit SUBCUT Q6H [facility]; Protocol Last Admin: 05/23/24 05:34 Dose: Not Given Documented By: CHRIST Non-Admin Reason: No Insulin Coverage Comments: bs 145 Labetalol HCl (Labetalol Hcl 100 Mg/20 Ml Vial) 10 mg IVPUSH Q4H PRN PRN Reason: SBP > 170 Last Admin: 05/23/24 00:29 Dose: 10 mg Documented By: CHRIST Comments: 2ML Labetalol HCl (Labetalol Hcl 200 Mg Tablet) 200 mg PO BID [facility]; Protocol Last Admin: 05/23/24 08:44 Dose: 200 mg Documented By: ROSALINE Levothyroxine Sodium (Levothyroxine Sodium 100 Mcg Tablet) 100 mcg PO DAILY@0600 [facility] Last Admin: 05/23/24 05:32 Dose: 100 mcg Documented By: CHRIST Mirabegron (Mirabegron 25 Mg Tab.Er.24h) 25 mg PO DAILY [facility] Last Admin: 05/23/24 08:44 Dose: 25 mg Documented By: ROSALINE Sodium Chloride (0.9 % Sodium Chloride Flush 3 Ml Syringe) 3 ml IVFLUSH QSHIFT [facility] Last Admin: 05/23/24 08:45 Dose: 3 ml Documented By: ROSALINE Labs 05/23/24 07:46 05/23/24 07:46 Labs: Laboratory Results - last 24 hr 05/20/24 05/22/24 05/22/24 13:22 11:04 16:00 MCV MCH MCHC RDW Plt Count MPV Absolute Nucleated RBC Nucleated RBC % (auto) Anion Gap Estim Creat Clear Calc Estimated GFR POC Glucose 305 H 199 H Random Glucose Calcium CA 125 Antigen 8 05/22/24 05/23/24 05/23/24 19:22 00:16 05:32 MCV MCH MCHC RDW Plt Count MPV Absolute Nucleated RBC Nucleated RBC % (auto) Anion Gap Estim Creat Clear Calc Estimated GFR POC Glucose 175 H 167 H 145 H Random Glucose Calcium CA 125 Antigen 05/23/24 07:46 MCV 91.8 MCH 30.5 MCHC 33.2 RDW 13.5 Plt Count 242 MPV 11.3 Absolute Nucleated RBC 0.000 Nucleated RBC % (auto) 0.0 Anion Gap 11 L Estim Creat Clear Calc 32.5 Estimated GFR 38 POC Glucose Random Glucose 181 H Calcium 10.0 D CA 125 Antigen Microbiology Microbiology Results: Microbiology 05/20/24 03:15 Gram Stain - Final Cerebrospinal Fluid CSF Examination - Final Fluid Description - Final CSF Culture - Final No growth after 3 days. Assessment and Plan (1) Encephalopathy: Status: Acute (2) Seizure-like activity: Status: Acute Plan 83 y/o woman with PMHx significant for dementia admitted with: Fever, seizure-like activity and metabolic encephalopathy. Initial concern for meningitis and was started on IV Abx and Acyclovir, however LP showed no evidence of bacterial meningitis and so Abx stopped and Acyclovir but MRI showed no evidence of herpes encephalitis so Acyclovir is being stopped. An MRI showed finding suspicious for posssible vasculitis or thrombosis. Vasculitis not supported by normal ESR and relatively low CRP. Lovneox is initiated for possible thrombosis. Neuro to follow up continue steroid for now. Repeat CT 05/22 showed no acute finding. Will discuss further with Neuro Seizure-like activity--continue Keppra , EEG:Abnormal EEG suggestive of generalize cerebral dysfunction with no obvious epileptic tendency. Type 2 diabetes mellitus. Insulin sliding scale. Glipizide and empagliflozin on hold Hypothyroidism. TSH is normal. Continue levothyroxine Essential hypertension. Labetalol IV as needed. Labetalol PO and losartan on hold until eating consistently Hyperlipidemia. Statin on hold Speech recommends NDD3/THIN , but not eating much FEN: She is not taking much by mouth. Hypernatremia now, starting IVF D5W, repeat sodium 4 to 6 hours and if not improving nephrology consult. i Change med by mouth if needed if needed Depression. Sertraline when eating DVT prophylaxis:lovenox Code status: DNR/DNI (per daughter) need for inpatient: Acute encephalpaty, acute cerebral trombosis with oncologing work up and acute treatment will discuss with daughter again today, daughter state patient had memory issues and was supposed to be moved to a memory unit along with and that her dementia has precipitously declined the last 2 weeks, culminating into this hospitalization.. Discussed over the phone with daughter and will discuss further in person Quality Stroke Does the patient have a stroke diagnosis?: No VTE Prior VTE?: No VTE Risk Level:: Medical - moderate - high VTE Device Contraindication: N/A - Device Ordered VTE Drug Contraindication: Treatment Not Indicated
--- NOTE | 2024-05-23 10:02 | MHC.SL.SWA ---
Addendum entered and electronically signed by BOWEN Floyd 05/23/24 10:15: Do not feed if pt is not engaged w/ PO Original Note: Risk of Aspiration Due to: Reduced Cognition Dysphasia Diet Status: NO CHANGE Liquid Consistency and Strategies for Safe Swallow: Liquid Intake Recommendation: Thin Liquid Intake Strategies: Small Sips Solid Food Consistency: Dietary Recommendations: Chopped/Advanced (NDD3) Oral Medication Intake: Crushed with Puree Please contact the pharmacy regarding appropriate crushable or liquid drug formulations that are available whenever modified delivery is recommended. Compensatory Strategies and Precautions to be Taken for Safe Swallow: Sitting Upright (90 deg) Small Bites and Sips Alternate Liquids/Solids Rate of Ingestion Change Oral Check Avoid Specific Foods Supervision While Eating and Drinking for Safe Swallow: Total Assistance (1:1) Foods to Avoid: Hard, tough to chew solids Swallowing Recommended Treatments: Compens. Strategy Educat. Recommendation for Speech: Inpatient Speech Therapy Comment: Recommend pt continue w/ CHOPPED/ADVANCED (NDD3) diet and THIN liquids, pills to be CRUSHED in PUREE. Patient w/ hx dementia, difficulty feeding self d/t confusion. She will need 1:1 assistance feeding and aspiration precautions. Per case management, pt's baseline is reportedly regular solids and independent feeding at [facility]. Frequency/Duration: M-F PRN Organizational Development Consultant Clinican/Clinical Fellow: No Supervisory Statement: I have reviewed and agree with the student/clinical fellow's documentation: N/A Speech Language Pathologist: Joaquina Garcia M.A., CCC-REAMING MACHINE TENDER
--- NOTE | 2024-05-23 10:46 | MHC.CM.PN ---
pt remains confused, not able to participate in PT, requiring 1:1 assistance to eat. Referral in to [facility] with info that pt and have moved into [facility], part of the [facility] campus, they are following.
--- NOTE | 2024-05-23 10:50 | P.CDIM_ITS ---
PROVIDER RESPONSE TEXT: To clarify, the appropriate diagnosis supported by the clinical indicators: Dementia: probably vascular QUERY TEXT: PHYSICIAN'S DOCUMENTATION REQUEST Date of Query: 05/23/2024 09:46 AM EDT Patient Name: Hazel Restrepo Admit Date: 05/20/2024 Dear Spencer Romero, A review of the medical record indicates additional documentation may be needed. Please review below and update the documentation accordingly. Clinical Indicators: Multifactorial Dementia She remains very confused, altered mental status, agitated, speech incoherent Olanzapine Patient was supposed to be moved to a memory unit along with and her dementia has precipitous ly declined the last two weeks. Based on the above, could you clarify any further specificity to the noted Dementia if known: Dementia Indicate type of dementia, such as Alzheimer's, senile, vascular, Lewy body, etc. Baseline dementia Indicate type, such as Alzheimer's, senile, vascular, Lewy body, etc., and any associated behavioral disturbances (aggressive, combative, or violent behavior) Other (explain) Clinically unable to determine (explain) Thank you, Kathryn Solis, CCS, CDIS Use of terms such as suspected, likely, concern for, or probable (associated with a specific diagnosi s that is being evaluated, monitored, or treated as if it exists) are acceptable and can be coded in the inpatient se tting, when documented at the time of discharge. Please use your independent medical judgment in providing your response. THIS QUERY IS PART OF THE PERMANENT MEDICAL RECORD
[2024-05-23 11:31] LABS: Glucose, Whole Blood 275 mg/dL (60-115)
[2024-05-23] MEDS: hydrALAZINE HCl 20 MG/ML VIAL 5 MG IVPUSH (12:56)
[2024-05-23 13:44] LABS: Carbohydrate Antigen 19-9 8 U/mL (<34)
[2024-05-23] MEDS: amLODIPine Besylate 5 MG TABLET PO (14:43)
[2024-05-23 16:14] LABS: Anion Gap 13 (12-20); Blood Urea Nitrogen 47 mg/dL (9-16); Calcium 9.7 mg/dL (8.4-10.2); Carbon Dioxide 21 mmol/L (22-29); Chloride 122 mmol/L (96-108); Creatinine Clr Calc Pharmacy 34.9; Estimated Glomerular Filt Rate 41; Glucose Random 168 mg/dL (60-115); Sodium 152 mmol/L (135-145)
--- NOTE | 2024-05-23 16:30 | PC.NURSE ---
SBP elevated this this am. Dr Romero notied IV push labetalol given per order with no effect. One time dose IV push hydralazine given per order with some effect oral amlodipine ordered and given in afternoon.
[2024-05-23 16:40] LABS: Glucose, Whole Blood 185 mg/dL (60-115)
[2024-05-23 18:14] LABS: Glucose, Whole Blood 195 mg/dL (60-115)
[2024-05-23] MEDS: hydrALAZINE HCl 20 MG/ML VIAL 10 MG IVPUSH (19:59)
[2024-05-23] MEDS: Atorvastatin Calcium 40 MG TABLET PO (20:35)
[2024-05-23 21:12] LABS: Anion Gap 13 (12-20); Carbon Dioxide 20 mmol/L (22-29); Chloride 119 mmol/L (96-108); Potassium 3.7 mmol/L (3.3-5.1); Sodium 148 mmol/L (135-145)
[2024-05-23 23:34] LABS: Glucose, Whole Blood 175 mg/dL (60-115)
[2024-05-24] VITALS: BP 127/54; PULSE 72; RESP 20; TEMP 36.3; O2SAT 94
[2024-05-24 04:00] VITALS: BP 113/46; PULSE 56; RESP 18; TEMP 36.6; O2SAT 95
[2024-05-24] MEDS: Levothyroxine Sodium 100 MCG TABLET PO (07:38)
[2024-05-24 07:53] VITALS: BP 125/57; PULSE 66; RESP 18; TEMP 36.5; O2SAT 94
[2024-05-24 08:34] LABS: Anion Gap 10 (12-20); Blood Urea Nitrogen 39 mg/dL (9-16); Calcium 9.1 mg/dL (8.4-10.2); Carbon Dioxide 23 mmol/L (22-29); Chloride 116 mmol/L (96-108); Creatinine Clr Calc Pharmacy 34.6; Estimated Glomerular Filt Rate 41; Glucose Random 184 mg/dL (60-115); Potassium 3.2 mmol/L (3.3-5.1); Sodium 146 mmol/L (135-145)
[2024-05-24 08:56] LABS: Glucose, Whole Blood 178 mg/dL (60-115)
[2024-05-24 08:56] LABS: Glucose, Whole Blood 166 mg/dL (60-115)
[2024-05-24] MEDS: levETIRAcetam 750 MG in 0.9 % Sodium Chloride 100 ML 430 MG IV (08:58)
--- NOTE | 2024-05-24 09:35 | PC.NURSE ---
Patient unable to stay awake long enough to take morning PO meds or eat breakfast, MD notified, hold PO meds
[2024-05-24 11:27] LABS: Glucose, Whole Blood 173 mg/dL (60-115)
[2024-05-24 11:32] VITALS: BP 149/65; PULSE 65; RESP 18; TEMP 36.7; O2SAT 95
[2024-05-24 12:12] LABS: Thyroid Stimulating Hormone 0.82 uIU/mL (0.32-4.0)
--- NOTE | 2024-05-24 12:17 | P.PNIM_ITS ---
Subjective Subjective Date of Service: 05/24/24 Interval History: f/u on acute metabolic encephalopathy, possible ecephalitis vs stroke She was very sleepy this morning difficult to arouse. Didn't get any med to sleep She is now awake, the most she's been awake since admission talking to me and daughter and making sense, and is able to eat some A CT of the head was request out of concern for being so somnolent at least to rule out bleed Physical Exam 2 Vital Signs: Vital Signs: Last Vital Signs Temp 98.1 F 05/24/24 11:32 Pulse 65 05/24/24 11:32 Resp 18 05/24/24 11:32 BP 149/65 H 05/24/24 11:32 Pulse Ox 95 05/24/24 11:32 O2 Del Method Room Air 05/24/24 11:32 O2 Flow Rate 2 05/22/24 15:03 BMI result Body Mass Index 26.5 Objective Data Active Medications Acetaminophen (Acetaminophen Supp 650 Mg Supp.Rect) 650 mg [place] Q6H PRN PRN Reason: Fever Last Admin: 05/20/24 10:28 Dose: 650 mg Documented By: JOSEE Apixaban (Apixaban 5 Mg Tablet) 5 mg PO BID [facility] Last Admin: 05/24/24 10:55 Dose: Not Given Documented By: APRLI Non-Admin Reason: Physician Held Med Atorvastatin Calcium (Atorvastatin Calcium 40 Mg Tablet) 40 mg PO BEDTIME [facility] Last Admin: 05/23/24 20:35 Dose: 40 mg Documented By: CHRIST Cyanocobalamin (Cyanocobalamin (Vitamin B-12) 1,000 Mcg Tablet) 1,000 mcg PO DAILY [facility] Last Admin: 05/24/24 10:55 Dose: Not Given Documented By: APRIL Non-Admin Reason: Physician Held Med Folic Acid (Folic Acid 1 Mg Tablet) 1 mg PO DAILY [facility] Last Admin: 05/24/24 10:56 Dose: Not Given Documented By: APRIL Non-Admin Reason: Physician Held Med Glucose (Glucose Gel 15 Gm Gel..Gram.) 15 gm PO Q15M PRN; Protocol PRN Reason: per Hypoglycemia Standing Ord. Dextrose (D10) 250 mls @ 750 mls/hr IV Q15M PRN; Protocol PRN Reason: per Hypoglycemia Standing Ord. Levetiracetam 750 mg/ Sodium (Chloride) 107.5 mls @ 430 mls/hr IV Q12H [facility] Last Infusion: 05/24/24 10:18 Dose: Infused Documented By: APRIL Insulin Human Lispro (Insulin Lispro 100 Unit/Ml 3 Ml Vial) 0 unit SUBCUT Q6H [facility]; Protocol Last Admin: 05/24/24 07:45 Dose: Not Given Labetalol HCl (Labetalol Hcl 100 Mg/20 Ml Vial) 10 mg IVPUSH Q4H PRN PRN Reason: SBP > 170 Last Admin: 05/23/24 16:02 Dose: 10 mg Documented By: JERI Labetalol HCl (Labetalol Hcl 200 Mg Tablet) 200 mg PO BID [facility]; Protocol Last Admin: 05/24/24 10:56 Dose: Not Given Documented By: APRIL Non-Admin Reason: Physician Held Med Mirabegron (Mirabegron 25 Mg Tab.Er.24h) 25 mg PO DAILY [facility] Last Admin: 05/24/24 10:56 Dose: Not Given Documented By: APRIL Non-Admin Reason: Physician Held Med Sertraline HCl (Sertraline Hcl 25 Mg Tablet) 75 mg PO DAILY [facility] Last Admin: 05/24/24 10:56 Dose: Not Given Documented By: APRIL Non-Admin Reason: Physician Held Med Sodium Chloride (0.9 % Sodium Chloride Flush 3 Ml Syringe) 3 ml IVFLUSH QSHIFT [facility] Last Admin: 05/24/24 10:18 Dose: Not Given Documented By: APRIL Non-Admin Reason: IV Running Labs 05/23/24 07:46 05/24/24 07:53 Labs: Laboratory Results - last 24 hr 05/20/24 05/23/24 05/23/24 13:22 15:42 16:22 Anion Gap 13 Estim Creat Clear Calc 34.9 Estimated GFR 41 POC Glucose 185 H Random Glucose 168 H Calcium 9.7 CA 19-9 Antigen 8 TSH 05/23/24 05/23/24 05/23/24 18:11 20:50 23:29 Anion Gap 13 Estim Creat Clear Calc Estimated GFR POC Glucose 195 H 175 H Random Glucose Calcium CA 19-9 Antigen TSH 05/24/24 05/24/24 05/24/24 06:41 07:34 07:53 Anion Gap 10 L Estim Creat Clear Calc 34.6 Estimated GFR 41 POC Glucose 178 H 166 H Random Glucose 184 H Calcium 9.1 D CA 19-9 Antigen TSH 0.82 05/24/24 11:22 Anion Gap Estim Creat Clear Calc Estimated GFR POC Glucose 173 H Random Glucose Calcium CA 19-9 Antigen TSH Microbiology Microbiology Results: Microbiology 05/20/24 03:15 Gram Stain - Final Cerebrospinal Fluid CSF Examination - Final Fluid Description - Final CSF Culture - Final No growth after 3 days. Assessment and Plan (1) Encephalopathy: Status: Acute (2) Seizure-like activity: Status: Acute Plan 83 y/o woman with PMHx significant for dementia admitted with: Fever, seizure-like activity and metabolic encephalopathy. Initial concern for meningitis and was started on IV Abx and Acyclovir, however LP showed no evidence of bacterial meningitis and so Abx stopped and Acyclovir but MRI showed no evidence of herpes encephalitis so Acyclovir is being stopped. An MRI showed finding suspicious for posssible vasculitis or thrombosis. Vasculitis not supported by normal ESR and relatively low CRP Cerebral thrombosis demonstrated on MR. Has been on Lovenox and discussed with neuro will continue anticoagulation with Lovenox and when taking PO reliably change to eliquis Seizure-like activity--continue Keppra , EEG:Abnormal EEG suggestive of generalize cerebral dysfunction with no obvious epileptic tendency. Check with Neuro if we still need to continue this Type 2 diabetes mellitus. Insulin sliding scale. Glipizide and empagliflozin on hold, sliding scale Hypothyroidism. TSH is normal. Continue levothyroxine Essential hypertension. resume PO labetalol Hyperlipidemia. Statin on hold Speech recommends NDD3/THIN , but not eating much FEN: IVF if not taking enough by mouth, seems to be eating some today Hypernatremia--d/t deydration, resolved with IVF Depression. Sertraline when able DVT prophylaxis:lovenox Code status: DNR/DNI (per daughter) need for inpatient: Acute encephalpaty, acute cerebral trombosis with oncologing work up and acute treatment will discuss with daughter again today, daughter state patient had memory issues and was supposed to be moved to a memory unit along with and that her dementia has precipitously declined the last 2 weeks, culminating into this hospitalization.. Discussed over the phone with daughter and will discuss further in person Quality Stroke Does the patient have a stroke diagnosis?: No VTE Prior VTE?: No VTE Risk Level:: Medical - moderate - high VTE Device Contraindication: N/A - Device Ordered VTE Drug Contraindication: Treatment Not Indicated
--- NOTE | 2024-05-24 13:14 | MHC.SLORD ---
Speech Language Pathology Order Status: Attempted to see patient at lunch, patient sleeping, extremely lethargic when awakened, fell back to sleep after being repositioned to start meal. P.O. not appropriate at time of visit, [facility] will continue to follow.
--- NOTE | 2024-05-24 13:19 | PM.CNNEP ---
History of Present Illness Reason for Consult Consult date: 05/24/24 Chief Complaint Chief complaint: Altered mental state , r/o meningitis History of Present Illness Narrative: 83 y/o woman with past medical history significant for dementia, type 2 diabetes mellitus on oral hypoglycemic agents, hypothyroidism, essential hypertension, depression and hyperlipidemia was brought to the emergency department 2 days ago (Tuesday) via ambulance from her assisted living facility [facility] after she was found on the floor Consulted for management of hypertension and hypernatremia Review of Systems Review of Systems Yes Unobtainable due to mental status PMFSH Past Medical History Medical History (Updated 05/25/24 @ 14:38 by Gus Reynolds MD) Hypothyroidism HTN (hypertension) Diabetes Family History Family history: reviewed and not pertinent Social History Social History Household Members: Unknown / Unable to assess Housing: Unknown / Unable to assess Do you presently have visiting nurse or other home services: No Unable to assess alcohol history related to: Unable to respond Patient Tobacco Use Status: Never used Tobacco service: No Meds Allergies Allergy/AdvReac Type Severity Reaction Status Date / Time iodine Allergy Mild unknown Verified 05/18/24 11:50 Active Medications: Current Medications Acetaminophen (Acetaminophen Supp 650 Mg Supp.Rect) 650 mg [place] Q6H PRN PRN Reason: Fever Last Admin: 05/20/24 10:28 Dose: 650 mg Apixaban (Apixaban 5 Mg Tablet) 5 mg PO BID [facility] Last Admin: 05/24/24 10:55 Dose: Not Given Atorvastatin Calcium (Atorvastatin Calcium 40 Mg Tablet) 40 mg PO BEDTIME [facility] Last Admin: 05/23/24 20:35 Dose: 40 mg Cyanocobalamin (Cyanocobalamin (Vitamin B-12) 1,000 Mcg Tablet) 1,000 mcg PO DAILY [facility] Last Admin: 05/24/24 10:55 Dose: Not Given Folic Acid (Folic Acid 1 Mg Tablet) 1 mg PO DAILY [facility] Last Admin: 05/24/24 10:56 Dose: Not Given Glucose (Glucose Gel 15 Gm Gel..Gram.) 15 gm PO Q15M PRN; Protocol PRN Reason: per Hypoglycemia Standing Ord. Dextrose (D10) 250 mls @ 750 mls/hr IV Q15M PRN; Protocol PRN Reason: per Hypoglycemia Standing Ord. Levetiracetam 750 mg/ Sodium (Chloride) 107.5 mls @ 430 mls/hr IV Q12H [facility] Last Infusion: 05/24/24 10:18 Dose: Infused Insulin Human Lispro (Insulin Lispro 100 Unit/Ml 3 Ml Vial) 0 unit SUBCUT Q6H [facility]; Protocol Last Admin: 05/24/24 12:24 Dose: Not Given Labetalol HCl (Labetalol Hcl 100 Mg/20 Ml Vial) 10 mg IVPUSH Q4H PRN PRN Reason: SBP > 170 Last Admin: 05/23/24 16:02 Dose: 10 mg Labetalol HCl (Labetalol Hcl 200 Mg Tablet) 200 mg PO BID [facility]; Protocol Last Admin: 05/24/24 10:56 Dose: Not Given Mirabegron (Mirabegron 25 Mg Tab.Er.24h) 25 mg PO DAILY [facility] Last Admin: 05/24/24 10:56 Dose: Not Given Sertraline HCl (Sertraline Hcl 25 Mg Tablet) 75 mg PO DAILY [facility] Last Admin: 05/24/24 10:56 Dose: Not Given Sodium Chloride (0.9 % Sodium Chloride Flush 3 Ml Syringe) 3 ml IVFLUSH QSHIFT [facility] Last Admin: 05/24/24 10:18 Dose: Not Given Home Medications ?Medication ?Instructions ?Recorded ?Confirmed ?Last Taken ?Type atorvastatin 40 mg tablet 40 mg PO BEDTIME 06/07/22 05/19/24 Unknown History empagliflozin 25 mg tablet 25 mg PO DAILY 06/07/22 05/19/24 Unknown History (Jardiance) glipizide 5 mg tablet 2.5 mg PO DAILY 06/07/22 05/19/24 Unknown History labetalol 200 mg tablet 200 mg PO BID 06/07/22 05/19/24 Unknown History losartan 50 mg tablet 50 mg PO DAILY 06/07/22 05/19/24 Unknown History sertraline 50 mg tablet 75 mg PO DAILY 06/07/22 05/19/24 Unknown History cholecalciferol (vitamin D3) 1,250 1,250 mcg PO MORENO 05/19/24 05/19/24 Unknown History mcg (50,000 unit) capsule cyanocobalamin (vitamin B-12) 1,000 mcg PO DAILY 05/19/24 05/19/24 Unknown History 1,000 mcg tablet (Vitamin B-12) folic acid 1 mg tablet 1 mg PO DAILY 05/19/24 05/19/24 Unknown History levothyroxine 100 mcg tablet 100 mcg PO DAILY 05/19/24 05/19/24 Unknown History losartan 25 mg tablet 25 mg PO DAILY 05/19/24 05/19/24 Unknown History mirabegron 25 mg tablet,extended 25 mg PO DAILY 05/19/24 05/19/24 Unknown History release 24 hr (Myrbetriq) Physical Exam Vital Signs: Last Vital Signs Temp 98.1 F 05/24/24 11:32 Pulse 65 05/24/24 11:32 Resp 18 05/24/24 11:32 BP 149/65 H 05/24/24 11:32 Pulse Ox 95 05/24/24 11:32 O2 Del Method Room Air 05/24/24 11:32 O2 Flow Rate 2 05/22/24 15:03 BMI result Body Mass Index 26.5 Const General: ill appearing Neck Neck: Yes supple Resp Auscultation: clear to auscultation bilaterally Cardio Palpation: no palpable S3 Heart sounds: no rubs GI Palpation (GI): Soft to palpation Auscultation: normal bowel sounds Neuro Motor exam (neuro): no asterixis Results Lab Results 05/23/24 07:46 05/27/24 06:12 Lab results: Chemistry 05/23/24 05/23/24 05/23/24 07:46 15:42 20:50 Sodium 154 H 152 H 148 H Potassium 3.9 4.0 3.7 Carbon Dioxide 23 21 L 20 L BUN 50 H 47 H Creatinine 1.33 1.24 Calcium 10.0 D 9.7 05/24/24 07:53 Sodium 146 H Potassium 3.2 L Carbon Dioxide 23 BUN 39 H Creatinine 1.25 Calcium 9.1 D Hematology 05/23/24 07:46 WBC 11.8 H Hgb 14.2 Plt Count 242 Assessment and Plan (1) CKD (chronic kidney disease): Status: Acute (2) Hypernatremia: Status: Acute (3) HTN (hypertension): Status: Acute Plan Elderly woman with altered mental status. Goal is to optimize blood pressure. Avoid rapid lowering of blood pressure. All medications were reviewed I will keep her on oral medications and avoid short-acting medications. Hold IV labetalol. She would acute kidney injury superimposed on chronic kidney disease due to hypoperfusion. Creatinine is improving and close to baseline. Mild hypernatremia due to free water deficit. Goal is to maintain serum sodium between 140 and 145. Continue to monitor serum sodium and no need for hypotonic fluids at this time Procedures Date of Service Date of Service: 05/28/24
[2024-05-24] MEDS: Enoxaparin Sodium 80 MG/0.8 ML SYRINGE 70 MG SUBCUT (15:30)
[2024-05-24 15:43] VITALS: BP 140/74; PULSE 74; RESP 18; TEMP 36.1; O2SAT 96
[2024-05-24] MEDS: 0.9 % Sodium Chloride Flush 3 ML SYRINGE IVFLUSH ×2 (17:27→20:14)
[2024-05-24 18:00] LABS: Glucose, Whole Blood 173 mg/dL (60-115)
[2024-05-24 19:44] VITALS: BP 137/59; PULSE 67; RESP 20; TEMP 36.5; O2SAT 97
[2024-05-24] MEDS: Labetalol HCL 200 MG TABLET PO (20:11)
[2024-05-24] MEDS: Atorvastatin Calcium 40 MG TABLET PO (20:11)
[2024-05-25] VITALS: BP 131/58; PULSE 70; RESP 16; TEMP 36.4; O2SAT 93
[2024-05-25 00:40] LABS: Glucose, Whole Blood 144 mg/dL (60-115)
[2024-05-25 03:50] VITALS: BP 141/66; PULSE 68; RESP 16; TEMP 36.6; O2SAT 96
[2024-05-25 05:16] LABS: Glucose, Whole Blood 140 mg/dL (60-115)
[2024-05-25 06:33] LABS: Anion Gap 10 (12-20); Blood Urea Nitrogen 41 mg/dL (9-16); Calcium 9.5 mg/dL (8.4-10.2); Carbon Dioxide 26 mmol/L (22-29); Chloride 117 mmol/L (96-108); Creatinine Clr Calc Pharmacy 30.4; Estimated Glomerular Filt Rate 35; Glucose Random 149 mg/dL (60-115); Potassium 3.3 mmol/L (3.3-5.1); Sodium 150 mmol/L (135-145)
[2024-05-25 08:00] VITALS: BP 164/71; PULSE 75; RESP 19; TEMP 36.5; O2SAT 93
[2024-05-25 08:35] LABS: Glucose, Whole Blood 161 mg/dL (60-115)
[2024-05-25] MEDS: Labetalol HCL 200 MG TABLET PO ×2 (08:45→21:45)
[2024-05-25] MEDS: Cyanocobalamin (Vitamin B-12) 1,000 MCG TABLET 1000 MCG PO (08:58)
[2024-05-25] MEDS: Sertraline HCL 25 MG TABLET 75 MG PO (08:58)
[2024-05-25] MEDS: Folic Acid 1 MG TABLET PO (08:58)
[2024-05-25] MEDS: 0.9 % Sodium Chloride Flush 3 ML SYRINGE IVFLUSH (09:06)
--- NOTE | 2024-05-25 10:35 | HO.PM.IMPN ---
Subjective Subjective Date of Service: 05/25/24 Interval History: seen and examined denies any pain states she lives in [place] with her knows shes in a hospital Physical Exam Vital Signs: Vital Signs: Last Vital Signs Temp 97.7 F 05/25/24 08:00 Pulse 75 05/25/24 08:00 Resp 19 05/25/24 08:00 BP 164/71 H 05/25/24 08:00 Pulse Ox 93 05/25/24 08:00 O2 Del Method Room Air 05/25/24 08:00 O2 Flow Rate 2 05/22/24 15:03 BMI result Body Mass Index 26.5 Const: Other: General - no acute distress, appears comfortable Cardiovascular - regular rate and rhythm, S1-S2 Lungs - normal respiratory effort, clear to auscultation bilaterally, no wheezing Abdomen - soft, nontender, no rebound or guarding Extremities - no edema bilaterally Neuro - awake and alert, no focal deficits Objective Data Active Medications Acetaminophen (Acetaminophen Supp 650 Mg Supp.Rect) 650 mg [place] Q6H PRN PRN Reason: Fever Last Admin: 05/20/24 10:28 Dose: 650 mg Documented By: JOSEE Atorvastatin Calcium (Atorvastatin Calcium 40 Mg Tablet) 40 mg PO BEDTIME [facility] Last Admin: 05/24/24 20:11 Dose: 40 mg Documented By: SHAMIKA Cyanocobalamin (Cyanocobalamin (Vitamin B-12) 1,000 Mcg Tablet) 1,000 mcg PO DAILY [facility] Last Admin: 05/25/24 08:58 Dose: 1,000 mcg Documented By: AARON Enoxaparin Sodium (Enoxaparin Sodium 80 Mg/0.8 Ml Syringe) 70 mg SUBCUT Q24H [facility] Last Admin: 05/24/24 15:30 Dose: 70 mg Documented By: APRIL Folic Acid (Folic Acid 1 Mg Tablet) 1 mg PO DAILY [facility] Last Admin: 05/25/24 08:58 Dose: 1 mg Documented By: AARON Glucose (Glucose Gel 15 Gm Gel..Gram.) 15 gm PO Q15M PRN; Protocol PRN Reason: per Hypoglycemia Standing Ord. Dextrose (D10) 250 mls @ 750 mls/hr IV Q15M PRN; Protocol PRN Reason: per Hypoglycemia Standing Ord. Insulin Human Lispro (Insulin Lispro 100 Unit/Ml 3 Ml Vial) 0 unit SUBCUT QIDACHS [facility]; Protocol Labetalol HCl (Labetalol Hcl 200 Mg Tablet) 200 mg PO BID [facility]; Protocol Last Admin: 05/25/24 08:45 Dose: 200 mg Documented By: AARON Levetiracetam (Levetiracetam 250 Mg Tablet) 750 mg PO BID [facility] Mirabegron (Mirabegron 25 Mg Tab.Er.24h) 25 mg PO DAILY [facility] Last Admin: 05/25/24 09:06 Dose: Not Given Documented By: AARON Non-Admin Reason: can't crush per Sertraline HCl (Sertraline Hcl 25 Mg Tablet) 75 mg PO DAILY [facility] Last Admin: 05/25/24 08:58 Dose: 75 mg Documented By: AARON Sodium Chloride (0.9 % Sodium Chloride Flush 3 Ml Syringe) 3 ml IVFLUSH QSHIFT [facility] Last Admin: 05/25/24 09:06 Dose: 3 ml Documented By: AARON Labs 05/23/24 07:46 05/25/24 05:55 Labs: Laboratory Results - last 24 hr 05/24/24 05/24/24 05/24/24 07:53 11:22 17:57 Hold Purple Top Anion Gap Estim Creat Clear Calc Estimated GFR POC Glucose 173 H 173 H Random Glucose Calcium TSH 0.82 05/25/24 05/25/24 05/25/24 00:35 05:12 05:55 Hold Purple Top SEE NOTE Anion Gap 10 L Estim Creat Clear Calc 30.4 Estimated GFR 35 POC Glucose 144 H 140 H Random Glucose 149 H Calcium 9.5 TSH 05/25/24 07:35 Hold Purple Top Anion Gap Estim Creat Clear Calc Estimated GFR POC Glucose 161 H Random Glucose Calcium TSH Microbiology Microbiology Results: Microbiology 05/19/24 22:55 Blood Culture - Final Blood - Venous No growth after 5 days. 05/19/24 22:55 Blood Culture - Final Blood - Venous No growth after 5 days. Assessment and Plan (1) Hypernatremia: Status: Acute Plan 83 y/o woman with PMHx significant for dementia admitted with: HyperNa likely insufficient oral intake will start d5w x 24 hours and re-eval Fever, seizure-like activity and metabolic encephalopathy. Initial concern for meningitis and was started on IV Abx and Acyclovir, however LP showed no evidence of bacterial meningitis and so Abx stopped and Acyclovir but MRI showed no evidence of herpes encephalitis so Acyclovir is being stopped. An MRI showed finding suspicious for posssible vasculitis or thrombosis. Vasculitis not supported by normal ESR and relatively low CRP Cerebral thrombosis demonstrated on MR. Has been on Lovenox and discussed with neuro will continue anticoagulation with Lovenox and when taking PO reliably change to eliquis Seizure-like activity--continue Keppra , EEG:Abnormal EEG suggestive of generalize cerebral dysfunction with no obvious epileptic tendency. will change keppra to po and d/w neuro re: rodent exterminator need Type 2 diabetes mellitus. Insulin sliding scale. Glipizide and empagliflozin on hold, sliding scale Hypothyroidism. TSH is normal. Continue levothyroxine Essential hypertension. resume PO labetalol Hyperlipidemia. Statin on hold Speech recommends NDD3/THIN , but not eating much FEN:IVF as above Depression. Sertraline when able DVT prophylaxis:lovenox Code status: DNR/DNI (per daughter) need for inpatient: hyperNa, will need IV to maintain euvolemia for now Quality Stroke Does the patient have a stroke diagnosis?: No VTE Prior VTE?: No VTE Risk Level:: Medical - moderate - high VTE Device Contraindication: N/A - Device Ordered VTE Drug Contraindication: Treatment Not Indicated
--- NOTE | 2024-05-25 10:46 | P.CNNE_ITS ---
History of Present Illness Data of Consult Service Date: 05/25/24 Primary Care Provider: Adali Ulloa MD [facility] Reason for consult: Encephalopathy 83 years old woman who initially presented with possible seizure and postictal face. Now she is doing much better. One EEG was slightly abnormal suggestive of seizure activity. She was treated with levetiracetam and then lumbar puncture was also done that did not reveal or confirm any definitive encephalitic pathology. Vascular images was suggestive of venous thrombosis. [facility] Past Medical History Medical History (Updated 05/24/24 @ 13:21 by Al Langston MD) Hypothyroidism HTN (hypertension) Diabetes Family History Family history: reviewed and not pertinent Social History Social History Household Members: Unknown / Unable to assess Housing: Unknown / Unable to assess Do you presently have visiting nurse or other home services: No Unable to assess alcohol history related to: Unable to respond Patient Tobacco Use Status: Never used Tobacco service: No Meds Allergies Allergy/AdvReac Type Severity Reaction Status Date / Time iodine Allergy Mild unknown Verified 05/18/24 11:50 Active Medications: Current Medications Acetaminophen (Acetaminophen Supp 650 Mg Supp.Rect) 650 mg [place] Q6H PRN PRN Reason: Fever Last Admin: 05/20/24 10:28 Dose: 650 mg Atorvastatin Calcium (Atorvastatin Calcium 40 Mg Tablet) 40 mg PO BEDTIME [facility] Last Admin: 05/24/24 20:11 Dose: 40 mg Cyanocobalamin (Cyanocobalamin (Vitamin B-12) 1,000 Mcg Tablet) 1,000 mcg PO DAILY [facility] Last Admin: 05/25/24 08:58 Dose: 1,000 mcg Enoxaparin Sodium (Enoxaparin Sodium 80 Mg/0.8 Ml Syringe) 70 mg SUBCUT Q24H [facility] Last Admin: 05/24/24 15:30 Dose: 70 mg Folic Acid (Folic Acid 1 Mg Tablet) 1 mg PO DAILY [facility] Last Admin: 05/25/24 08:58 Dose: 1 mg Glucose (Glucose Gel 15 Gm Gel..Gram.) 15 gm PO Q15M PRN; Protocol PRN Reason: per Hypoglycemia Standing Ord. Dextrose (D10) 250 mls @ 750 mls/hr IV Q15M PRN; Protocol PRN Reason: per Hypoglycemia Standing Ord. Dextrose (D5w) 1,000 mls @ 80 mls/hr IVCONT .[id number] [facility] Insulin Human Lispro (Insulin Lispro 100 Unit/Ml 3 Ml Vial) 0 unit SUBCUT QIDACHS [facility]; Protocol Labetalol HCl (Labetalol Hcl 200 Mg Tablet) 200 mg PO BID [facility]; Protocol Last Admin: 05/25/24 08:45 Dose: 200 mg Levetiracetam (Levetiracetam 250 Mg Tablet) 750 mg PO BID [facility] Mirabegron (Mirabegron 25 Mg Tab.Er.24h) 25 mg PO DAILY [facility] Last Admin: 05/25/24 09:06 Dose: Not Given Sertraline HCl (Sertraline Hcl 25 Mg Tablet) 75 mg PO DAILY [facility] Last Admin: 05/25/24 08:58 Dose: 75 mg Sodium Chloride (0.9 % Sodium Chloride Flush 3 Ml Syringe) 3 ml IVFLUSH QSHIFT [facility] Last Admin: 05/25/24 09:06 Dose: 3 ml Home Medications ?Medication ?Instructions ?Recorded ?Confirmed ?Last Taken ?Type atorvastatin 40 mg tablet 40 mg PO BEDTIME 06/07/22 05/19/24 Unknown History empagliflozin 25 mg tablet 25 mg PO DAILY 06/07/22 05/19/24 Unknown History (Jardiance) glipizide 5 mg tablet 2.5 mg PO DAILY 06/07/22 05/19/24 Unknown History labetalol 200 mg tablet 200 mg PO BID 06/07/22 05/19/24 Unknown History losartan 50 mg tablet 50 mg PO DAILY 06/07/22 05/19/24 Unknown History sertraline 50 mg tablet 75 mg PO DAILY 06/07/22 05/19/24 Unknown History cholecalciferol (vitamin D3) 1,250 1,250 mcg PO MORENO 05/19/24 05/19/24 Unknown History mcg (50,000 unit) capsule cyanocobalamin (vitamin B-12) 1,000 mcg PO DAILY 05/19/24 05/19/24 Unknown History 1,000 mcg tablet (Vitamin B-12) folic acid 1 mg tablet 1 mg PO DAILY 05/19/24 05/19/24 Unknown History levothyroxine 100 mcg tablet 100 mcg PO DAILY 05/19/24 05/19/24 Unknown History losartan 25 mg tablet 25 mg PO DAILY 05/19/24 05/19/24 Unknown History mirabegron 25 mg tablet,extended 25 mg PO DAILY 05/19/24 05/19/24 Unknown History release 24 hr (Myrbetriq) Physical Exam 2 Vital Signs: Vital Signs: Last Vital Signs Temp 97.7 F 05/25/24 08:00 Pulse 75 05/25/24 08:00 Resp 19 05/25/24 08:00 BP 164/71 H 05/25/24 08:00 Pulse Ox 93 05/25/24 08:00 O2 Del Method Room Air 05/25/24 08:00 O2 Flow Rate 2 05/22/24 15:03 BMI result Body Mass Index 26.5 Neuro: Other: She is alert and awake with normal spontaneity of speech fluency comprehension and affect. There is no focal weakness Results Labs 05/23/24 07:46 05/25/24 05:55 Labs: BMP 05/25/24 05:55 Sodium 150 H Potassium 3.3 Chloride 117 H Carbon Dioxide 26 BUN 41 H Creatinine 1.42 H Calcium 9.5 Microbiology Microbiology Results: Microbiology 05/19/24 22:55 Blood - Venous Blood Culture - Final No growth after 5 days. 05/19/24 22:55 Blood - Venous Blood Culture - Final No growth after 5 days. 05/20/24 03:15 Cerebrospinal Fluid Gram Stain - Final 05/20/24 03:15 Cerebrospinal Fluid CSF Examination - Final 05/20/24 03:15 Cerebrospinal Fluid Fluid Description - Final 05/20/24 03:15 Cerebrospinal Fluid CSF Culture - Final No growth after 3 days. Assessment and Plan (1) Seizure-like activity: Status: Acute 83 years old woman who probably had venous sinus thrombosis related seizure and postictal face on admission and now she was feeling much better. My recommendation is to continue anticoagulation at least for 3 months and similarly continue levetiracetam during this time. After that both of these medicines can be stopped provided there was no further seizure-like activity. At the three-month is from the time of when she was admitted. Procedures Date of Service Date of Service: 05/25/24
[2024-05-25] MEDS: Dextrose 5 % 1,000 ML 80 ML IVCONT ×2 (10:54→21:46)
[2024-05-25] MEDS: levETIRAcetam 250 MG TABLET 750 MG PO ×2 (10:54→21:45)
[2024-05-25 11:47] VITALS: BP 145/65; PULSE 70; RESP 20; TEMP 36.9; O2SAT 98
[2024-05-25 11:50] LABS: Glucose, Whole Blood 246 mg/dL (60-115)
[2024-05-25] MEDS: Insulin Lispro 100 UNIT/ML 3 ML VIAL SUBCUT (12:33)
--- NOTE | 2024-05-25 13:04 | MHC.SL.SWA ---
Speech Pathologist Impression: Risk of aspiration, oral dysphagia Risk of Aspiration Due to: Reduced Cognition Dysphasia Diet Status: Recommend pt continue w/ CHOPPED/ADVANCED (NDD3) diet and THIN liquids, pills to be CRUSHED in PUREE. Patient w/ hx dementia, difficulty feeding self d/t confusion. She is encouraged to feed herself when possible, but may need assistance with tray set up and throughout meal, direct supervision for aspiration precautions. Do not feed if pt is not engaged w/ PO. Per case management, pt's baseline is reportedly regular solids and independent feeding at [facility]. Liquid Consistency and Strategies for Safe Swallow: Liquid Intake Recommendation: Thin Liquid Intake Strategies: Small Sips Solid Food Consistency: Dietary Recommendations: Chopped/Advanced (NDD3) Oral Medication Intake: Crushed with Puree Please contact the pharmacy regarding appropriate crushable or liquid drug formulations that are available whenever modified delivery is recommended. Compensatory Strategies and Precautions to be Taken for Safe Swallow: Sitting Upright (90 deg) Small Bites and Sips Alternate Liquids/Solids Rate of Ingestion Change Oral Check Avoid Specific Foods Supervision While Eating and Drinking for Safe Swallow: Total Assistance (1:1) Foods to Avoid: Hard, tough to chew solids Swallowing Recommended Treatments: Compens. Strategy Educat. Recommendation for Speech: Inpatient Speech Therapy Frequency/Duration: M-F PRN Date Range for Service Req: Timeline to reassess: Senior Staff Specialized Employment Clinican/Clinical Fellow: No Supervisory Statement: I have reviewed and agree with the student/clinical fellow's documentation: N/A Speech Language Pathologist: Betty Reyes M.A., CCC-[employer] OPERATOR
--- NOTE | 2024-05-25 14:36 | P.PNNP_ITS ---
Subjective Subjective Date of Service: 05/25/24 Interval history: seen and examined; knows shes in a hospital; All recent data reviewed Physical Exam 2 Vital Signs: Vital Signs: Last Vital Signs Temp 98.5 F 05/25/24 11:47 Pulse 70 05/25/24 11:47 Resp 20 05/25/24 11:47 BP 145/65 H 05/25/24 11:47 Pulse Ox 98 05/25/24 11:47 O2 Del Method Room Air 05/25/24 11:47 O2 Flow Rate 2 05/22/24 15:03 BMI result Body Mass Index 26.5 Const: General: no acute distress Neck: Neck: Yes supple Resp: Auscultation: diminished lung sounds Cardio: Rate: regular rate GI: Palpation (GI): Soft to palpation Neuro: General: moves all extremities Extrem: General: Yes no pedal edema Objective Data Labs 05/23/24 07:46 05/25/24 05:55 Labs: Laboratory Results - last 24 hr 05/24/24 05/25/24 05/25/24 17:57 00:35 05:12 Hold Purple Top Sodium Potassium Chloride Carbon Dioxide Anion Gap BUN Creatinine Estim Creat Clear Calc Estimated GFR POC Glucose 173 H 144 H 140 H Random Glucose Calcium 05/25/24 05/25/24 05/25/24 05:55 07:35 10:53 Hold Purple Top SEE NOTE Sodium 150 H Potassium 3.3 Chloride 117 H Carbon Dioxide 26 Anion Gap 10 L BUN 41 H Creatinine 1.42 H Estim Creat Clear Calc 30.4 Estimated GFR 35 POC Glucose 161 H 246 H Random Glucose 149 H Calcium 9.5 Microbiology Microbiology Results: Microbiology 05/19/24 22:55 Blood - Venous Blood Culture - Final No growth after 5 days. 05/19/24 22:55 Blood - Venous Blood Culture - Final No growth after 5 days. 05/20/24 03:15 Cerebrospinal Fluid Gram Stain - Final 05/20/24 03:15 Cerebrospinal Fluid CSF Examination - Final 05/20/24 03:15 Cerebrospinal Fluid Fluid Description - Final 05/20/24 03:15 Cerebrospinal Fluid CSF Culture - Final No growth after 3 days. Procedures Date of Service Date of Service: 05/25/24 Assessment & Plan Assessment and plan (1) Hypernatremia: Status: Acute (2) HTN (hypertension): Status: Acute (3) CKD stage 3a, GFR 45-59 ml/min: Status: Acute Plan Serum creatinine fairly stable & getting close to baseline. Mild hypernatremia due to free water deficit. Started on D5W Continue current supportive care for now Needs F/U with [facility] after hospital D/C Progress Note: Quality Stroke Does the patient have a stroke diagnosis?: No
[2024-05-25 15:39] VITALS: BP 145/61; PULSE 60; RESP 16; TEMP 36.1; O2SAT 95
[2024-05-25 16:23] LABS: Glucose, Whole Blood 140 mg/dL (60-115)
[2024-05-25] MEDS: Enoxaparin Sodium 80 MG/0.8 ML SYRINGE 70 MG SUBCUT (17:37)
[2024-05-25 20:00] VITALS: BP 118/53; PULSE 68; RESP 17; TEMP 36.3; O2SAT 97
[2024-05-25 21:43] LABS: Glucose, Whole Blood 148 mg/dL (60-115)
[2024-05-25] MEDS: Atorvastatin Calcium 40 MG TABLET PO (21:45)
[2024-05-26] VITALS (8 sets, daily range): BP systolic 113–157; BP diastolic 56–68; PULSE 55–72; RESP 18–20; TEMP 36.1–36.7; O2SAT 95–98
[2024-05-26 06:55] LABS: Anion Gap 11 (12-20); Blood Urea Nitrogen 33 mg/dL (9-16); Calcium 8.6 mg/dL (8.4-10.2); Carbon Dioxide 20 mmol/L (22-29); Chloride 112 mmol/L (96-108); Creatinine Clr Calc Pharmacy 35.1; Estimated Glomerular Filt Rate 42; Glucose Random 180 mg/dL (60-115); Potassium 3.2 mmol/L (3.3-5.1); Sodium 140 mmol/L (135-145)
[2024-05-26 07:22] LABS: Glucose, Whole Blood 217 mg/dL (60-115)
--- NOTE | 2024-05-26 07:44 | P.PNIM_ITS ---
Subjective Subjective Date of Service: 05/26/24 Interval History: seen and examined denies any pain states she lives in [place] with her knows shes in a hospital, improved PO intake with 1:1 feed Review of Systems Review of Systems: Yes all other systems are reviewed and are negative Physical Exam 2 Vital Signs: Vital Signs: Last Vital Signs Temp 97.1 F 05/26/24 04:00 Pulse 55 05/26/24 04:00 Resp 18 05/26/24 04:00 BP 131/63 05/26/24 04:00 Pulse Ox 98 05/26/24 04:00 O2 Del Method Room Air 05/26/24 04:00 O2 Flow Rate 2 05/22/24 15:03 BMI result Body Mass Index 26.5 Constitutional - Awake and Alert, No apparent distress Eyes - PERRLA, EOMI Cardiovascular - S1S2, RRR, No edema Respiratory - Normal lung expansion, Normal respiratory effort, No respiratory distress, CTA bilaterally Gastrointestinal - NT / ND; +BS; No rebound or guarding Extremities - no calf tenderness bilaterally, no swelling Skin - Warm/Dry Neurological - Alert & oriented to self and place Objective Data Active Medications Acetaminophen (Acetaminophen Supp 650 Mg Supp.Rect) 650 mg LA Q6H PRN PRN Reason: Fever Last Admin: 05/20/24 10:28 Dose: 650 mg Documented By: JOSEE Atorvastatin Calcium (Atorvastatin Calcium 40 Mg Tablet) 40 mg PO BEDTIME [facility] Last Admin: 05/25/24 21:45 Dose: 40 mg Documented By: ALEXA Cyanocobalamin (Cyanocobalamin (Vitamin B-12) 1,000 Mcg Tablet) 1,000 mcg PO DAILY [facility] Last Admin: 05/25/24 08:58 Dose: 1,000 mcg Documented By: AARON Enoxaparin Sodium (Enoxaparin Sodium 80 Mg/0.8 Ml Syringe) 70 mg SUBCUT Q24H [facility] Last Admin: 05/25/24 17:37 Dose: 70 mg Documented By: ALEXA Folic Acid (Folic Acid 1 Mg Tablet) 1 mg PO DAILY [facility] Last Admin: 05/25/24 08:58 Dose: 1 mg Documented By: AARON Glucose (Glucose Gel 15 Gm Gel..Gram.) 15 gm PO Q15M PRN; Protocol PRN Reason: per Hypoglycemia Standing Ord. Dextrose (D10) 250 mls @ 750 mls/hr IV Q15M PRN; Protocol PRN Reason: per Hypoglycemia Standing Ord. Dextrose (D5w) 1,000 mls @ 80 mls/hr IVCONT .[id number] [facility] Stop: 05/26/24 10:35 Last Admin: 05/25/24 21:46 Dose: 80 mls/hr Documented By: ALEXA Insulin Human Lispro (Insulin Lispro 100 Unit/Ml 3 Ml Vial) 0 unit SUBCUT QIDACHS [facility]; Protocol Last Admin: 05/25/24 21:40 Dose: Not Given Documented By: ALEXA Non-Admin Reason: No Insulin Coverage Labetalol HCl (Labetalol Hcl 200 Mg Tablet) 200 mg PO BID [facility]; Protocol Last Admin: 05/25/24 21:45 Dose: 200 mg Documented By: ALEXA Levetiracetam (Levetiracetam 250 Mg Tablet) 750 mg PO BID [facility] Last Admin: 05/25/24 21:45 Dose: 750 mg Documented By: ALEXA Mirabegron (Mirabegron 25 Mg Tab.Er.24h) 25 mg PO DAILY [facility] Last Admin: 05/25/24 09:06 Dose: Not Given Documented By: AARON Non-Admin Reason: can't crush per Sertraline HCl (Sertraline Hcl 25 Mg Tablet) 75 mg PO DAILY [facility] Last Admin: 05/25/24 08:58 Dose: 75 mg Documented By: AARON Sodium Chloride (0.9 % Sodium Chloride Flush 3 Ml Syringe) 3 ml IVFLUSH QSHIFT [facility] Last Admin: 05/26/24 00:09 Dose: Not Given Documented By: NADER Non-Admin Reason: IV Running Labs 05/23/24 07:46 05/26/24 06:18 Labs: Laboratory Results - last 24 hr 05/25/24 05/25/24 05/25/24 07:35 10:53 16:09 Hold Purple Top Anion Gap Estim Creat Clear Calc Estimated GFR POC Glucose 161 H 246 H 140 H Random Glucose Calcium 05/25/24 05/26/24 05/26/24 21:20 06:18 06:58 Hold Purple Top SEE NOTE Anion Gap 11 L Estim Creat Clear Calc 35.1 Estimated GFR 42 POC Glucose 148 H 217 H Random Glucose 180 H Calcium 8.6 D Assessment and Plan (1) Hypernatremia: Status: Acute Plan 83 y/o woman with PMHx significant for dementia admitted with: HyperNa likely insufficient oral intake will start d5w x 24 hours DC'd. Follow lytes nephro following Fever, seizure-like activity and metabolic encephalopathy. Initial concern for meningitis and was started on IV Abx and Acyclovir, however LP showed no evidence of bacterial meningitis and so Abx stopped and Acyclovir but MRI showed no evidence of herpes encephalitis so Acyclovir is being stopped. EEG with evidence of seziure activity An MRI showed finding suspicious for posssible vasculitis or thrombosis. Vasculitis not supported by normal ESR and relatively low CRP. Per neuro, continue keppra Cerebral thrombosis demonstrated on MR. Has been on Lovenox and discussed with neuro will continue anticoagulation x 3 months. Tolerating some PO. DC lovenox. Initiate eliquis 5mg BID Seizure-like activity--continue Keppra , EEG:Abnormal EEG suggestive of generalize cerebral dysfunction with no obvious epileptic tendency. will change keppra to po and d/w neuro re: custodial need Type 2 diabetes mellitus. Insulin sliding scale. Glipizide and empagliflozin on hold, sliding scale Hypothyroidism. TSH is normal. Continue levothyroxine Essential hypertension. resume PO labetalol Hyperlipidemia. Statin on hold Speech recommends NDD3/THIN , but not eating much- 1:1 feeds continue to be recommended FEN:IVF as above Depression. Sertraline when able DVT prophylaxis:lovenox Code status: DNR/DNI (per daughter) need for inpatient: hyperNa, will need IV to maintain euvolemia for now Quality Stroke Does the patient have a stroke diagnosis?: No VTE Prior VTE?: No VTE Risk Level:: Medical - moderate - high VTE Device Contraindication: N/A - Device Ordered VTE Drug Contraindication: Treatment Not Indicated
[2024-05-26] MEDS: Sertraline HCL 25 MG TABLET 75 MG PO (08:22)
[2024-05-26] MEDS: Folic Acid 1 MG TABLET PO (08:22)
[2024-05-26] MEDS: levETIRAcetam 250 MG TABLET 750 MG PO ×2 (08:22→21:56)
[2024-05-26] MEDS: Cyanocobalamin (Vitamin B-12) 1,000 MCG TABLET 1000 MCG PO (08:23)
[2024-05-26] MEDS: Mirabegron 25 MG TAB.ER.24H PO (08:23)
[2024-05-26] MEDS: Insulin Lispro 100 UNIT/ML 3 ML VIAL SUBCUT ×3 (08:24→21:53)
[2024-05-26 12:01] LABS: Glucose, Whole Blood 218 mg/dL (60-115)
--- NOTE | 2024-05-26 13:22 | PC.NURSE ---
Addendum entered by Gema Mercer RN 05/26/24 15:00: Pt was agreeable to get to chair, pt was able to stand pivot with 2A and a walker to recliner chair. Camera in room and chair alarm in place. Original Note: Pt encouraged to get OOB and into chair this shift, pt refused. Education provided to patient on importance of turn and reposition, exercise, and prevention of pneumonia. Education on going. Foam dressings applied to bilateral heels and coccyx for prevention of pressure injuries. All safety measures in place.
[2024-05-26 16:33] LABS: Glucose, Whole Blood 125 mg/dL (60-115)
[2024-05-26] MEDS: 0.9 % Sodium Chloride Flush 3 ML SYRINGE IVFLUSH ×2 (16:36→21:53)
[2024-05-26 21:24] LABS: Glucose, Whole Blood 177 mg/dL (60-115)
[2024-05-26] MEDS: Atorvastatin Calcium 40 MG TABLET PO (21:52)
[2024-05-26] MEDS: Apixaban 5 MG TABLET PO (21:52)
[2024-05-27] VITALS: BP 133/86; PULSE 78; RESP 18; TEMP 37; O2SAT 95
[2024-05-27 04:00] VITALS: BP 123/58; PULSE 72; RESP 18; TEMP 36.7; O2SAT 97
[2024-05-27 06:52] LABS: Anion Gap 9 (12-20); Blood Urea Nitrogen 26 mg/dL (9-16); Calcium 9.4 mg/dL (8.4-10.2); Carbon Dioxide 22 mmol/L (22-29); Chloride 114 mmol/L (96-108); Creatinine Clr Calc Pharmacy 40.8; Estimated Glomerular Filt Rate 49; Glucose Random 145 mg/dL (60-115); Potassium 3.4 mmol/L (3.3-5.1); Sodium 142 mmol/L (135-145)
[2024-05-27 07:53] LABS: Glucose, Whole Blood 135 mg/dL (60-115)
[2024-05-27 08:00] VITALS: BP 131/60; PULSE 64; RESP 18; TEMP 36.3; O2SAT 96
[2024-05-27] MEDS: levETIRAcetam 250 MG TABLET 750 MG PO (08:38)
[2024-05-27] MEDS: Sertraline HCL 25 MG TABLET 75 MG PO (08:38)
[2024-05-27] MEDS: 0.9 % Sodium Chloride Flush 3 ML SYRINGE IVFLUSH (08:39)
[2024-05-27] MEDS: Mirabegron 25 MG TAB.ER.24H PO (08:39)
[2024-05-27] MEDS: Apixaban 5 MG TABLET PO (08:39)
[2024-05-27] MEDS: Folic Acid 1 MG TABLET PO (08:39)
[2024-05-27] MEDS: Cyanocobalamin (Vitamin B-12) 1,000 MCG TABLET 1000 MCG PO (08:39)
[2024-05-27] MEDS: Labetalol HCL 200 MG TABLET PO (08:39)
[2024-05-27 11:19] LABS: Glucose, Whole Blood 257 mg/dL (60-115)
[2024-05-27 12:00] VITALS: BP 144/64; PULSE 62; RESP 18; TEMP 36.3; O2SAT 95
--- NOTE | 2024-05-27 12:03 | P.DS_ITS ---
DS: Providers Provider Date of Service: 05/27/24 Date of admission: 05/20/24 02:40 Date of discharge: 05/27/24 Primary care physician: Adali Ulloa MD Attending physician on admission: Amrik Mohan Consults: 05/18/24 14:28 Consult to Psychiatry Stat Consulting Provider: Psych Covering Reason for consultation: acute one month change in dementia per family some med changes Has provider been notified: Yes 05/20/24 02:43 Consult to Neurology Routine Consulting Provider: [facility] Reason for consultation: seizure like activity, fever Has provider been notified: No 05/20/24 03:33 Consult to Infectious Diseases Routine Consulting Provider: [facility] Reason for consultation: Fever, seizures-like activity Has provider been notified: No 05/23/24 17:36 Consult to Nephrology Routine Consulting Provider: [facility] Reason for consultation: hypernatremia Has provider been notified: Yes Attending physician on discharge: [facility] Discharging clinician: Sydnie Miranda DS: Diagnosis Discharge Diagnosis (1) Hypernatremia: Status: Acute DS: Summary Hospital Course Hospital Course: HPI on admission by Dr. Cruz 05/20: Chief Complaint: Fever, seizure-like activity Hazel Restrepo is 83 y/o woman with past medical history significant for dementia, type 2 diabetes mellitus on oral hypoglycemic agents, hypothyroidism, essential hypertension, depression and hyperlipidemia was brought to the emergency department 2 days ago (Tuesday) via ambulance from her assisted living facility [facility] after she was found on the floor. HPI was provided by patient's daughter who was at bedside. Daughter stated that the patient has had 2 falls before and has been in the emergency department twice for this. She was seen at [facility] due to inability to ambulate on weakness but workup has been negative. It seems like the patient was treated for a UTI over the past month. According to ED provider the patient has been in the emergency department since Tuesday awaiting for placement by case management. Today in the observation unit the patient was having acute changes in mental status and was found to have a temperature 103.2 degrees. She was also to have significant hypertension. Not if the patient was having a stroke or seizure or last time known well time as she received olanzapine for agitation at some point. Patient was given Ativan IV. Neurologist on-call has been contacted waiting for call back. Her blood workup showed no leukocytosis and lactic acid is normal. Blood cultures were obtained. There are no significant electrolyte imbalances. BUN is 25 and creatinine 1.18. Hemoglobin is slightly elevated. Differential showed neutrophilia, low lymphocytes and low monocytes. INR is normal. Venous blood gas 2 days ago was found to be unremarkable. Urinalysis showed no evidence of urinary tract infection, it did showed elevated specific gravity, proteinuria and glucosuria. Toxicology for salicylates and acetaminophen are unremarkable. Viral testing for COVID 19, influenza and RSV is negative. CXR showed no infiltrates or consolidation. Head CT scan showed no acute intracranial abnormality. Head and neck CTA showed no high-grade stenosis or proximal occlusion of the vasculature of the head and neck. ED tx: Acetaminophen 975 mg PO, NS 2 L bolus (total), ceftriaxone 2 g IV (total), Tylenol 650 mg [place], Ativan 2 g IV, NS 1 L bolus, Keppra 1 g IV Hospital course: 83 year old female admitted for hospitalist service from observation unit after developing altered mental status and fever of 103.2 degrees. UA and CXR negative. Etiology of symptoms was unclear but given concerns for possible seizure was loaded with IV keppra. Given additional concerns for bacterial meningitis, pt was empirically started on vancomycin, ampicillin, and ceftriaxone. LP performed in the ED with elevated total protein of 73.7 otherwise unremarkable, no evidence of bacterial meningitis. She was also covered with acyclovir for possible viral encephalitis, but CSF also negative for herpes and subsequent MRI brain did not reveal evidence of viral encephalitis. Blood cultures negative. MRI did show finding suspicious for posssible vasculitis or thrombosis. Vasculitis not supported by normal ESR and relatively low CRP. Per neurology more likely cerebral thrombosis and was started on subcut lovenox given limited PO intake. EEG showed generalized cerebral dysfunction without obvious epileptic tendency. Neurology recommended indefinite treatment with keppra 750mg BID. TSH was evaluated and was WNL. Pt did develop hypernatremia likely secondary to insufficient PO intake and was treated with D5W x 24 hours. Pt PO intake did improve and was evaluated by DINING ROOM HELPER recommending NDD3/thin liquids with 1:1 feeds and PO encouragement. Repeat electrolytes following discontinuation of IVF were normal. Renal function also remained close to baseline, no INESSA. With adequate PO intake, pt was switching to PO eliquis, recommended x 3 months, and keppra recommended indefinitely. Glucose levels were managed with SSI but PO antihyperglycemics canbe resumed on discharge. Continued on home antihypertensives and levothyroxine. Mentation did improve to baseline. Evaluated by PT recommending LTC or home with 20/06 care. However, has been accepted by [facility] for STR and will be discharged to facility with anticipated length of stay for rehab less than 30 days. Discussed with patient's daughter and health care proxy, Denisha, who is in agreement. Course by problem: Hypernatremia likely insufficient oral intake Treated x D5W x 24 hours. Tolerating increased PO. Lytes normalized Seen by neprhology, recommending outpt follow up Fever, seizure-like activity, metabolic encephalopathy Empirically covered with vanco, ctx, and ampicillin as well as acyclovir LP negative for infectious etiology Empirically treated with keppra for possible seizures, probable cause, likely secondary to cerebral venous thrombosis seen on MRI WBC and fevers/tachycardia likely in response to seizure activity, no sepsis/severe sepsis Repeat CT shows questionable high attentuation lesion adjacent to medial aspect of right frontal cortex, however exam limited by motion artifact. Mentation improved to baseline, MRI unliekly to change course as pt already on anticoagulation and no lfocal deficits Cerebral venous thrombosis treated with lovenox and transitioned to eliquis 5mg BID PO continue eliquis 5mg BID x 3 months per neurology Seizure-like acitivity EEG showed generalized cerebral dysfunction without obvious epileptic tendency continue keppra 750mg BID indefinitely per neurology TSH WNL Type 2 diabetes mellitus Managed with Insulin sliding scale Resume glipizide and empagliflozin on discharge Hypothyroidism TSH is normal, Continue levothyroxine Essential hypertension continue labetalol Hyperlipidemia resume statin Seen by Speech recommends NDD3/THIN , but not eating much- 1:1 feeds continue to be recommended Status at Discharge Overall status at discharge: patient is progressing back to baseline Time Attestation Discharge Coordination Time (in mins): 40 Quality: Safe Use of Opioids Does Pt have an Active Cancer Diagnosis on the Problem List?: No Quality: Stroke Does the patient have a stroke diagnosis?: No Physical Exam Vital Signs: Vital Signs: Last Vital Signs Temp 97.4 F 05/27/24 08:00 Pulse 64 05/27/24 08:00 Resp 18 05/27/24 08:00 BP 131/60 05/27/24 08:00 Pulse Ox 96 05/27/24 08:00 O2 Del Method Room Air 05/27/24 08:00 O2 Flow Rate 2 05/22/24 15:03 BMI result Body Mass Index 26.5 DS: Data Data Completed and Pending Labs on day of discharge: Laboratory Results - last 24 hr 05/26/24 05/26/24 05/27/24 15:54 21:07 06:12 Hold Purple Top SEE NOTE Sodium 142 Potassium 3.4 Chloride 114 H Carbon Dioxide 22 Anion Gap 9 L BUN 26 H Creatinine 1.06 Estim Creat Clear Calc 40.8 Estimated GFR 49 POC Glucose 125 H 177 H Random Glucose 145 H Calcium 9.4 D 05/27/24 05/27/24 07:37 11:07 Hold Purple Top Sodium Potassium Chloride Carbon Dioxide Anion Gap BUN Creatinine Estim Creat Clear Calc Estimated GFR POC Glucose 135 H 257 H Random Glucose Calcium Discharge Plan Discharge Anticipated Discharge Date/Time: 05/27/24 13:03 Patient Disposition: Xfer SNF Discharge Diagnosis: Seizure like activity, cerebral venous thrombosis Referrals: [facility] [Other] - 1 Week Adali Ulloa MD [Primary Care Provider] - 1 Week Discharge Medications: New levetiracetam 250 mg Tablet 750 mg PO BID Qty: 180 0RF Eliquis 5 mg Tablet 5 mg PO BID Qty: 180 0RF Continued cyanocobalamin (vitamin B-12) [Vitamin B-12] 1,000 mcg Tablet 1,000 mcg PO DAILY levothyroxine 100 mcg Tablet 100 mcg PO DAILY losartan 25 mg Tablet 25 mg PO DAILY Rx Instructions: TDD = 75mg folic acid 1 mg Tablet 1 mg PO DAILY cholecalciferol (vitamin D3) 1,250 mcg (50,000 unit) Capsule 1,250 mcg PO MORENO Myrbetriq 25 mg Tablet Extended Release 24 Hr 25 mg PO DAILY Jardiance 25 mg tablet 25 mg PO DAILY glipizide 5 mg tablet 2.5 mg PO DAILY sertraline 50 mg tablet 75 mg PO DAILY labetalol 200 mg tablet 200 mg PO BID atorvastatin 40 mg tablet 40 mg PO BEDTIME losartan 50 mg tablet 50 mg PO DAILY Rx Instructions: TDD = 75mg Discharge Orders: Discharge Order (Routine); Ordered 05/27/24 Ordered By: Sydnie Miranda Diet: Advance to usual diet Activity on Discharge: As tolerated Stand Alone Forms: Patient Portal Discharge page Print Language: [place] Citizen Care Plan Goals: Cerebral venous thombosis -seen on MR -continue eliquis 5mg BID x 3 months Seizure like activity -like in setting of above. EEG showed cerebral dysfunction, but no definite epileptic activity -per neurology, continue keppra 750mg BID indefinitely Hypernatremia -due to poor PO intake. Resolved DINING ROOM HELPER recommending NDD3/thin liquids with 1:1 feeds Health Concerns: Cerebral venous thrombosis Seizure like activity Hypernatremia Plan of Treatment: See above. Transfer to [facility] Assessment: See above. See discharge summary
--- NOTE | 2024-05-27 12:06 | MHC.CM.PN ---
Second IMM given 05/27. Pt is medically cleared for discharge to [facility] at [facility] today, she will transport via BLS/[facility] at 2:30pm. Pts daughter/HCP Denisha contacted and in agreement with the discharge plan, IMM was addressed with her.
[2024-05-27] MEDS: Insulin Lispro 100 UNIT/ML 3 ML VIAL SUBCUT (12:22)
== END 2024-05-27 14:24 | disposition skilled nursing facility (03) | DRG 92 ==
LOC: HO.ED 05-20 06:48 → HO.EDOVER 05-20 06:54 → HO.IMC 05-20 11:48
PROVIDERS: Emergency Medicine; Family Medicine; Internal Medicine; Physician Assistant Medical; Student in an Organized Health Care Education/Training Program; Admitting Provider Internal Medicine; Emergency Provider Emergency Medicine; PCP Internal Medicine; Visit Provider Physician Assistant
DX: G08 Intracranial and intraspinal phlebitis and thrombophlebitis (principal); E87.0 Hyperosmolality and hypernatremia; E03.9 Hypothyroidism, unspecified; R56.9 Unspecified convulsions; E11.9 Type 2 diabetes mellitus without complications; I12.9 Hypertensive chronic kidney disease with stage 1 through stage 4 chronic kidney disease, or unspecified chronic kidney disease; N18.31 Chronic kidney disease, stage 3a; Z66 Do not resuscitate; E86.0 Dehydration; E11.22 Type 2 diabetes mellitus with diabetic chronic kidney disease; E78.5 Hyperlipidemia, unspecified; F32.A Depression, unspecified; F01.50 Vascular dementia, unspecified severity, without behavioral disturbance, psychotic disturbance, mood disturbance, and anxiety; Z20.822 Contact with and (suspected) exposure to COVID-19; Z87.440 Personal history of urinary (tract) infections; Z79.84 Long term (current) use of oral hypoglycemic drugs; Z79.890 Hormone replacement therapy; Z79.899 Other long term (current) drug therapy
CPT/HCPCS: 0241U; 36415; 70450; 70496; 70498; 70553; 71045; 74176; 80048; 80051; 80053; 80076; 80143; 80179; 81001; 81003; 82140; 82378; 82550; 82607; 82746; 82803; 82945; 82947; 83605; 83690; 83735; 84157; 84443; 84484; 85025; 85027; 85610; 85652; 86140; 86301; 86304; 87015; 87040; 87070; 87205; 87483; 89051; 92526; 92610; 93005; 93306; 95816; 97162; 99285; A9585; C1758; J0131; J0133; J0290; J0360; J0696; J1100; J1650; J1920; J1953; J2060; J3370; J7120; Q9957; Q9967

== ENCOUNTER → 2024-05-18 11:25 | Outpatient (BNV) | payer MEDICARE, OTHER, SELFPAY | PROVIDERS: Emergency Provider Emergency Medicine; PCP Internal Medicine; Visit Provider Internal Medicine | DX: E87.0 Hyperosmolality and hypernatremia (principal) | CPT/HCPCS: 99223; 99232; 99233; 99239; 99499 ==

== ENCOUNTER → 2024-05-18 11:57 | Outpatient (BNV) | payer MEDICARE, OTHER, SELFPAY | PROVIDERS: Emergency Provider Emergency Medicine; PCP Internal Medicine; Visit Provider Internal Medicine Cardiovascular Disease | DX: R94.31 Abnormal electrocardiogram [ECG] [EKG] (principal) | CPT/HCPCS: 93010 ==

== ENCOUNTER → 2024-05-19 23:00 | Outpatient (BNV) | payer MEDICARE, OTHER, SELFPAY | PROVIDERS: Admitting Provider Internal Medicine; Emergency Provider Emergency Medicine; PCP Internal Medicine; Visit Provider Internal Medicine Cardiovascular Disease | DX: R94.31 Abnormal electrocardiogram [ECG] [EKG] (principal) | CPT/HCPCS: 93010 ==

== ENCOUNTER 2024-05-20 02:40 | Outpatient (BNV) | payer MEDICARE, OTHER, SELFPAY | END 2024-05-22 07:00 | PROVIDERS: Admitting Provider Internal Medicine; Emergency Provider Emergency Medicine; PCP Internal Medicine; Visit Provider Internal Medicine Cardiovascular Disease | DX: I35.0 Nonrheumatic aortic (valve) stenosis (principal); I36.1 Nonrheumatic tricuspid (valve) insufficiency; I31.39 Other pericardial effusion (noninflammatory) | CPT/HCPCS: 93306 ==

== ENCOUNTER → 2024-05-20 02:40 | Outpatient (BNV) | payer MEDICARE, OTHER, SELFPAY | PROVIDERS: Admitting Provider Internal Medicine; Emergency Provider Emergency Medicine; PCP Internal Medicine; Visit Provider Internal Medicine | DX: G93.40 Encephalopathy, unspecified (principal); R41.82 Altered mental status, unspecified; R56.9 Unspecified convulsions | CPT/HCPCS: 99222 ==

== ENCOUNTER → 2024-05-20 02:40 | Outpatient (BNV) | payer MEDICARE, OTHER, SELFPAY | PROVIDERS: Admitting Provider Internal Medicine; Emergency Provider Emergency Medicine; PCP Internal Medicine; Visit Provider Internal Medicine Nephrology | DX: I12.9 Hypertensive chronic kidney disease with stage 1 through stage 4 chronic kidney disease, or unspecified chronic kidney disease (principal); N17.9 Acute kidney failure, unspecified; N18.30 Chronic kidney disease, stage 3 unspecified; E87.0 Hyperosmolality and hypernatremia | CPT/HCPCS: 99223; 99232 ==

== ENCOUNTER → 2024-05-20 02:40 | Outpatient (BNV) | payer MEDICARE, OTHER, SELFPAY | PROVIDERS: Admitting Provider Internal Medicine; Emergency Provider Emergency Medicine; PCP Internal Medicine; Visit Provider Psychiatry & Neurology Neurology | DX: R56.9 Unspecified convulsions (principal) | CPT/HCPCS: 99222; 99223 ==